=== PATIENT | female | born 1975 | race Caucasian/White ===

== ENCOUNTER → 2017-04-01 | Outpatient (CLI) | payer OTHER ==
--- NOTE | 2017-04-06 11:15 | MM ---
Reason for exam: screening (asymptomatic). Last mammogram was performed 1 year and 1 month ago. History: Family history of breast cancer in 2 maternal aunts. Physical Findings: A clinical breast exam by your physician is recommended on an annual basis and results should be correlated with mammographic findings. MG Screening Mammo w CAD Bilateral CC and MLO view(s) were taken. Prior study comparison: February 19, 2016, bilateral MG screening mammo w CAD. February 15, 2015, bilateral MG screening mammo w CAD. There are scattered fibroglandular densities. There is no discrete abnormality. ASSESSMENT: Negative, BI-RAD 1 RECOMMENDATION: Routine screening mammogram of both breasts in 1 year.
== END | disposition home or self-care (01) ==
LOC: RADMAMWWP 14:01
PROVIDERS: ATTEND Internal Medicine
DX: Z12.31 Encounter for screening mammogram for malignant neoplasm of breast (principal)

== ENCOUNTER → 2018-07-05 | Outpatient (CLI) | payer OTHER ==
--- NOTE | 2018-07-07 10:47 | MM ---
Reason for exam: screening (asymptomatic). Last mammogram was performed 1 year and 3 months ago. History: Family history of breast cancer in 2 maternal aunts. Physical Findings: A clinical breast exam by your physician is recommended on an annual basis and results should be correlated with mammographic findings. MG Screening Mammo w CAD Bilateral CC and MLO view(s) were taken. Prior study comparison: April 01, 2017, bilateral MG screening mammo w CAD. February 19, 2016, bilateral MG screening mammo w CAD. There are scattered fibroglandular densities. There is chronic nodularity bilaterally. No significant changes when compared with prior studies. ASSESSMENT: Benign, BI-RAD 2 RECOMMENDATION: Routine screening mammogram of both breasts in 1 year.
== END ==
LOC: RADMAMWWP 12:43
PROVIDERS: ATTEND Internal Medicine
DX: Z12.31 Encounter for screening mammogram for malignant neoplasm of breast (principal)
CPT/HCPCS: 77067

== ENCOUNTER → 2019-10-03 | Outpatient (CLI) | payer OTHER ==
--- NOTE | 2019-10-05 10:49 | MM ---
Reason for exam: screening (asymptomatic). Last mammogram was performed 1 year and 3 months ago. History: Family history of breast cancer in 2 maternal aunts. Physical Findings: A clinical breast exam by your physician is recommended on an annual basis and results should be correlated with mammographic findings. MG Screening Mammo w CAD Bilateral CC and MLO view(s) were taken. Prior study comparison: July 05, 2018, bilateral MG screening mammo w CAD. April 01, 2017, bilateral MG screening mammo w CAD. There are scattered fibroglandular densities. No significant changes when compared with prior studies. ASSESSMENT: Negative, BI-RAD 1 RECOMMENDATION: Routine screening mammogram of both breasts in 1 year.
== END | disposition home or self-care (01) ==
LOC: RADMAMWWP 15:18
PROVIDERS: ATTEND Internal Medicine
DX: Z12.31 Encounter for screening mammogram for malignant neoplasm of breast (principal)
CPT/HCPCS: 77067

== ENCOUNTER → 2020-11-02 | Outpatient (CLI) | payer OTHER ==
--- NOTE | 2020-11-05 12:04 | MM ---
Reason for exam: screening (asymptomatic). Last mammogram was performed 1 year and 1 month ago. History: Family history of breast cancer in 2 maternal aunts. Physical Findings: A clinical breast exam by your physician is recommended on an annual basis and results should be correlated with mammographic findings. MG Screening Mammo w CAD Bilateral CC and MLO view(s) were taken. Prior study comparison: October 03, 2019, bilateral MG screening mammo w CAD. July 05, 2018, bilateral MG screening mammo w CAD. There are scattered fibroglandular densities. There are benign appearing round, linear calcifications bilaterally. There is chronic nodularity in the left breast. There is no discrete abnormality. ASSESSMENT: Benign, BI-RAD 2 RECOMMENDATION: Routine screening mammogram of both breasts in 1 year.
== END ==
LOC: RADMAMWWP 10:00
PROVIDERS: ATTEND Internal Medicine
DX: Z12.31 Encounter for screening mammogram for malignant neoplasm of breast (principal); Z80.3 Family history of malignant neoplasm of breast
CPT/HCPCS: 77067

== ENCOUNTER → 2022-05-26 | Outpatient (CLI) | payer OTHER ==
[2022-05-26 19:10] LABS: Basophils # (A) 0.09 X 10*3/uL (0.00-0.10); Basophils % (A) 0.7 %; Eosinophils # (A) 0.56 X 10*3/uL (0.04-0.35); Eosinophils % (A) 4.5 %; HCT 37.2 % (37.2-46.3); HGB 12.1 g/dL (12.0-15.0); Immature Grans, Automated 0.5 %; Lymphocytes # (A) 3.21 X 10*3/uL (0.90-5.00); MCH 28.9 pg (27.0-32.0); MCHC 32.5 g/dL (32.0-37.0); Mean Platelet Volume 9.4 fL (9.5-12.2); Monocytes # (A) 0.67 X 10*3/uL (0.20-1.00); Monocytes % (A) 5.4 %; NRBC Per 100 WBC 0 /100 WBCS (0.0-0.0); Neutrophils # (A) 7.75 X 10*3/uL (1.80-7.70); Neutrophils % (A) 62.9 %; Platelet Count 395 X 10*3/uL (140-440); RBC 4.18 X 10*6/uL (4.10-5.20); RDW 13.7 % (11.5-14.5); WBC 12.34 X 10*3/uL (4.50-10.00)
[2022-05-26 21:40] LABS: African American GFR (CKD) 103.2 (60.0-200.0); Albumin/Globulin Ratio 1.49 (1.60-3.17); BUN/Creat Ratio 13.49 Ratio (12.00-20.00); Blood Urea Nitrogen 10.6 mg/dL (9.0-27.0); Calcium 9.5 mg/dL (8.7-10.3); Carbon Dioxide 24.6 mmol/L (20.0-27.5); Globulin 2.7 g/dL (1.6-3.3); Non-African American GFR(CKD) 89.1 (60.0-200.0); Potassium 4.5 mmol/L (3.5-5.5); T4, Free (Free Thyroxine) 1.06 ng/dL (0.800-1.800); Total Bilirubin 0.2 mg/dL (0.30-1.20); Total Protein 6.6 g/dL (6.2-8.2)
== END | disposition home or self-care (01) ==
LOC: LABWHC1 13:48
PROVIDERS: ATTEND Family Medicine
DX: E03.9 Hypothyroidism, unspecified (principal)
CPT/HCPCS: 36415; 80053; 84439; 84443; 84481; 85025

== ENCOUNTER → 2022-06-06 | Outpatient (CLI) | payer OTHER ==
--- NOTE | 2022-06-06 12:43 | XR ---
EXAMINATION TYPE: XR lumbar spine 2 or 3V DATE OF EXAM: 06/06/2022 COMPARISON: None HISTORY: Low back pain down left TECHNIQUE: 3 view lumbar spine FINDINGS: There are 5 lumbar-type vertebral bodies. Pedicles are intact. Disc heights are preserved. Vertebral body heights are preserved. Alignment is normal IMPRESSION: 1. Unremarkable 3 view lumbar spine
== END | disposition home or self-care (01) ==
LOC: RADXRMAIN 11:50
PROVIDERS: ATTEND Family Medicine
DX: M54.32 Sciatica, left side (principal)
CPT/HCPCS: 72100

== ENCOUNTER 2022-12-05 01:39 | Emergency (ER) | payer OTHER ==
[2022-12-05 01:54] VITALS: BP 124/85; PULSE 94; RESP 18; TEMP 98
[2022-12-05] MEDS ORDERED: ALPRAZolam 0.5 MG TAB PO STA (02:08)
--- NOTE | 2022-12-05 02:11 | ED ---
General Adult HPI - General Chief complaint: Recheck/Abnormal Lab/Rx Stated complaint: tremors Time Seen by Provider: 12/05/22 01:51 Source: patient Mode of arrival: ambulatory Limitations: no limitations - History of Present Illness Initial comments: Dictation was produced using [employer] dictation software. please excuse any grammatical, word or spelling errors. Chief Complaint: 47-year-old female presents emergency department for tremors during sleeping History of Present Illness: 47-year-old female states that for the last 5 nights she's been suffering from bilateral tremors only while sleeping. She states if she had not had a good night's rest over the last 4-5 nights. She did see her primary care doctor prescribed her 5 pills of Ambien. She tried to sleep tonight however she had these symptoms that woke her up out of her sleep she tried to go back to bed but was not successful. History of detached spine. States that her symptoms feel like they originate in her upper abdominal area and pretty down her legs last for several seconds. Patient has no complaints at bedside. The ROS documented in this emergency department record has been reviewed and confirmed by me. Those systems with pertinent positive or negative responses have been documented in the HPI. All other systems are other negative and/or noncontributory. PHYSICAL EXAM: General Impression: Alert and oriented x3, not in acute distress HEENT: Normocephalic atraumatic, extra-ocular movements intact, pupils equal and reactive to light bilaterally, mucous membranes moist. Cardiovascular: Heart regular rate and rhythm Chest: Able to complete full sentences, no retractions, no tachypnea Musculoskeletal: Pulses present and equal in all extremities, no peripheral edema Motor: no focal deficits noted Neurological: CN II-XII grossly intact, no focal motor or sensory deficits noted Skin: Intact with no visualized rashes Psych: Normal affect and mood ED course: 47-year-old female presents to the emergency department for other some musculoskeletal movements during sleep that prevent her from having good night's rest. Vital signs are stable. Physical examination is benign. Patient given a dose of Xanax. will drive her home told to see how she rest and then follow up with her primary care doctor. Nursing notes and chart review was performed Was pt. sent in by a medical professional or institution (, PA, JAVA ARCHITECT, urgent care, hospital, or assisted...) When possible be specific @ -No Did you speak to anyone other than the patient for history (EMS, parent, family, police, friend...)? What history was obtained from this source @ -No Did you review nursing and triage notes (agree or disagree)? Why? @ -I reviewed and agree with nursing and triage notes Were old charts reviewed (outside hosp., previous admission, EMS record, old EKG, old radiological studies, urgent care reports/EKG's, assisted records)? Report findings @ -No old charts were reviewed Differential Diagnosis (chest pain, altered mental status, abdominal pain women, abdominal pain men, vaginal bleeding, musculoskeletal, weakness, fever, dyspnea, syncope, headache, dizziness, GI bleed, back pain, seizure, CVA, palpatations, mental health)? @ -not applicable EKG interpreted by me (3pts min.). @ -None done X-rays interpreted by me (1pt min.). @ -None done CT interpreted by me (1pt min.). @ -None done U/S interpreted by me (1pt. min.). @ -None done What testing was considered but not performed or refused? (CT, X-rays, U/S, labs)? Why? @ -None What meds were considered but not given or refused? Why? @ -None Did you discuss the management of the patient with other professionals (professionals i.e. , PA, JAVA ARCHITECT, lab, RT, psych nurse, social media community manager, nephrologist, teacher, juvenile detention officer, pillowcase sewer)? Give summary @ -No Was smoking cessation discussed for >3mins.? @ -No Was critical care preformed (if so, how long)? @ -No Were there social determinants of health that impacted care today? How? (Homelessness, low income, unemployed, alcoholism, drug addiction, transportation, low edu. Level, literacy, decrease access to med. care, fdc, rehab)? @ -No Was there de-escalation of care discussed even if they declined (Discuss DNR or withdrawal of care, Hospice)? DNR status @ -No What co-morbidities impacted this encounter? (DM, HTN, Smoking, COPD, CAD, Cancer, CVA, ARF, Chemo, Hep., AIDS, mental health diagnosis, sleep apnea, morbid obesity)? @ -None Was patient admitted / discharged? Hospital course, mention meds given and route, prescriptions, significant lab abnormalities, going to OR and other pertinent info. @ -See above Undiagnosed new problem with uncertain prognosis? @ -No Drug Therapy requiring intensive monitoring for toxicity (Heparin, Nitro, Insulin, Cardizem)? @ -No Were any procedures done? @ -No Diagnosis/symptom? Acute, or Chronic, or Acute on Chronic? Uncomplicated (without systemic symptoms) or Complicated (systemic symptoms)? @ -1. Acute uncomplicated movement disorder during sleep Side effects of treatment? @ -No Exacerbation, Progression, or Severe Exacerbation? @ -No Poses a threat to life or bodily function? How? (Chest pain, [place], [place], pneumonia, PE, COPD, DKA, ARF, appy, cholecystitis, CVA, Diverticulitis, Homicidal, Suicidal, threat to staff... and all critical care pts) @ -No - Related Data Allergies Allergy/AdvReac Type Severity Reaction Status Date / Time No Known Allergies Allergy Verified 12/05/22 01:49 Review of Systems ROS Statement: Those systems with pertinent positive or pertinent negative responses have been documented in the HPI. ROS Other: All systems not noted in ROS Statement are negative. Past Medical History Additional Past Medical History / Comment(s): back pain History of Any Multi-Drug Resistant Organisms: None Reported Past Surgical History: Orthopedic Surgery Past Psychological History: No Psychological Hx Reported Smoking Status: Current every day smoker Past Alcohol Use History: None Reported Past Drug Use History: None Reported General Exam Limitations: no limitations Course Vital Signs 12/05/22 01:49 Temperature 98.0 F Pulse Rate 94 Respiratory 18 Rate Blood Pressure 124/85 O2 Sat by Pulse 98 Oximetry Disposition Clinical Impression: Sleep disturbance Disposition: HOME SELF-CARE Condition: Good Instructions (If sedation given, give patient instructions): Alprazolam (By mouth) Is patient prescribed a controlled substance at d/c from ED?: No Referrals: Felipe Lindo MD [Primary Care Provider] - 1-2 days Time of Disposition: 02:11
== END 2022-12-05 02:21 | disposition home or self-care (01) ==
LOC: EC 01:39
DX: G47.9 Sleep disorder, unspecified (principal); F17.200 Nicotine dependence, unspecified, uncomplicated
CPT/HCPCS: 99283

== ENCOUNTER 2022-12-08 06:56 | Emergency (ER) | payer OTHER ==
[2022-12-08 07:01] VITALS: RESP 18; TEMP 97.8
[2022-12-08] MEDS ORDERED: SODIUM CHLORIDE 0.9% 1,000 ML IV STA (07:28)
--- NOTE | 2022-12-08 07:32 | ED ---
General Adult HPI - General Chief complaint: Recheck/Abnormal Lab/Rx Stated complaint: Trouble sleeping, Possible Medication Reaction Time Seen by Provider: 12/08/22 07:20 Source: patient, RN notes reviewed, old records reviewed Mode of arrival: ambulatory Limitations: no limitations - History of Present Illness Initial comments: Patient is a 47-year-old female with past medical history remarkable for depression, hypertension, who presents to the emergency Department for reevaluation. She has been seen over the last week multiple times for vague sy mptoms of "leg shaking when I lay down to go to sleep." When I ask her, it seems that she is more having a spasming sensation and not an actual shaking. She states her legs are physically moving back and forth on visual inspection but rather she feels like she is having movement of her muscles in her legs. States it goes away when she takes her leg out. States it is in bilateral legs. Goes away but then she cannot go back to sleep. Has been having a difficult time sleeping over the last 7 days. States this is not occurred previously. It is not present while she is awake. Denies any chest pain or shortness of breath. Denies any abdominal pain, nausea, vomiting. Denies any saddle an esthesias. Denies any urinary or bowel incontinence or retention. Does have chronic sciatica left lower extremity pain/numbness but this is well controlled. Has no other acute complaints at this time. Currently denies any of her chief complaint symptoms at this time, as the spasming only occurs when she lays down to go to sleep. Presents for further evaluation at this time. He was seen once here and twice at [facility] over the last 7-8 days. States that the medication she is given did not seem to improve. She does have a follow-up appointment with her primary care physician this afternoon at 1:30 PM, however patient states she presents this morning because "I want to sleep." Denies any history of panic attacks. Denies feeling anxious. - Related Data Allergies Allergy/AdvReac Type Severity Reaction Status Date / Time No Known Allergies Allergy Verified 12/08/22 06:57 Review of Systems ROS Statement: Those systems with pertinent positive or pertinent negative responses have been documented in the HPI. Review of Systems: CONST: Denies fever EYES: Denies blurry vision ENT: Denies nasal congestion C/V: Denies Chest pain RESP: Denies shortness of breath GI: Denies abdominal pain : Denies dysuria SKIN: Denies rash. MSK: Denies joint pain. NEURO: Denies headache ROS Other: All systems not noted in ROS Statement are negative. Past Medical History Additional Past Medical History / Comment(s): back pain History of Any Multi-Drug Resistant Organisms: None Reported Past Surgical History: Orthopedic Surgery Past Psychological History: No Psychological Hx Reported Smoking Status: Current every day smoker Past Alcohol Use History: None Reported Past Drug Use History: None Reported General Exam - General Exam Comments Initial Comments: General: Appears in no acute distress. HEAD: Normal with no signs of head trauma. EYES: PERRLA, EOMI, conjunctiva normal, no discharge. Pupils are 3 mm and equal bilaterally. ENT: Hearing grossly intact, normal oropharynx. RESPIRATORY: Clear breath sounds bilaterally. No wheezes, rales, or rhonchi. C/V: Regular rate and rhythm. S1 and S2 auscultated, peripheral pulses 2+ and intact throughout ABD: Abd is soft, nontender, nondistended EXT: Normal range of motion, no obvious deformity SKIN: No rashes or lesions observed on exposed skin. NEURO: Alert and oriented x 4. Cranial nerves II-XII intact. No focal sensory or strength deficits. NIH of 0. GCS of 15. Limitations: no limitations Course Vital Signs 12/08/22 12/08/22 06:58 08:53 Temperature 97.8 F Pulse Rate 102 H 98 Respiratory 18 18 Rate Blood Pressure 133/88 128/78 O2 Sat by Pulse 96 100 Oximetry Medical Decision Making - Medical Decision Making Was pt. sent in by a medical professional or institution (, PA, APPLIANCES SAMPLE MAKER, urgent care, hospital, or [facility]...) When possible be specific @ -No Did you speak to anyone other than the patient for history (EMS, parent, family, police, friend...)? What history was obtained from this source @ -No Did you review nursing and triage notes (agree or disagree)? Why? @ -I reviewed and agree with nursing and triage notes Were old charts reviewed (outside hosp., previous admission, EMS record, old EKG, old radiological studies, urgent care reports/EKG's, mcc records)? Report findings @ -Old charts reviewed from 12/05/2022. Differential Diagnosis (chest pain, altered mental status, abdominal pain women, abdominal pain men, vaginal bleeding, weakness, fever, dyspnea, syncope, headache, dizziness, GI bleed, back pain, seizure, CVA, palpatations, mental health, musculoskeletal)? @ -Anxiety, depression, muscle spasms, panic disorders, insomnia. Electrolyte abnormalities. This list is not all inclusive. EKG interpreted by me (3pts min.). @ -None done X-rays interpreted by me (1pt min.). @ -None done CT interpreted by me (1pt min.). @ -None done U/S interpreted by me (1pt. min.). @ -None done What testing was considered but not performed or refused? (CT, X-rays, U/S, labs)? Why? @ -None What meds were considered but not given or refused? Why? @ -I did offer the patient a small dose of oral Ativan which she declines at this time. Did you discuss the management of the patient with other professionals (professionals i.e. , PA, APPLIANCES SAMPLE MAKER, lab, RT, psych nurse, social science research assistant, wood technologist, teacher, aoc director combat operations officer, pillowcase folder)? Give summary @ -No Was smoking cessation discussed for >3mins.? @ -No Was critical care preformed (if so, how long)? @ -No Were there social determinants of health that impacted care today? How? (Homelessness, low income, unemployed, alcoholism, drug addiction, transportation, low edu. Level, literacy, decrease access to med. care, residential, rehab)? @ -No Was there de-escalation of care discussed even if they declined (Discuss DNR or withdrawal of care, Hospice)? DNR status @ -No What co-morbidities impacted this encounter? (DM, HTN, Smoking, COPD, CAD, Cancer, CVA, ARF, Chemo, Hep., AIDS, mental health diagnosis, sleep apnea, morbid obesity)? @ -None Was patient admitted / discharged? Hospital course, mention meds given and route, prescriptions, significant lab abnormalities, going to OR and other pertinent info. @ -Based on the patient's presentation and physical exam, I do suspect possible psychiatric component to her current complaints. Patient currently has no complaints at this time but states she gets the leg shaking when she lays down to go to bed only. Is not present at any other time. Symptoms currently is not present. Exam is within acceptable limits. We did discuss it sounds that she is having muscle spasms. She was in agreement with that assessment is uncertain why. She denies any anxiety or history of panic attacks. States they have not obtain blood work for her visits and she is just received anti-anxiety medications. Therefore we will obtain basic labs will she is here to evaluate for any electrolyte abnormalities as a possible source of her complaints, however I did discuss with her that I have low suspicion is the complaints occurred at a specific time of day when she is going to bed. She was in agreement with this plan. She'll be given IV fluid bolus. I did offer her Ativan which she declines at this time. Vital signs are within acceptable limits. Labs including creatinine kinase are within acceptable limits. On reevaluation, patient's continued coffee and I discussed her workup with her. I believe it is safer to be discharged home with follow-up with her PCP this afternoon. She was in agreement with this plan. I will provide her with a single dose of oral Ativan and she wants attempt to sleep. We did discuss stopping drinking coffee as well as as well as proper sleep hygiene that she can sleep. She was in agreement this plan. We discussed she is likely experiencing insomnia as well as muscle spasms, with no appearance of the muscle spasms while she was in the emergency department today. She was discharged home. . I instructed the patient to follow up with their PCP in the next 1-3 days. I explained that the patient should return to the emergency department if they experience any worsening symptoms. Strict return precautions were discussed with the patient. The patient expressed understanding of these instructions. I answered all questions that the patient had. The patient was discharged home in good condition with their prescriptions and follow up information. Undiagnosed new problem with uncertain prognosis? @ -No Drug Therapy requiring intensive monitoring for toxicity (Heparin, Nitro, Insulin, Cardizem)? @ -No Were any procedures done? @ -No Diagnosis/symptom? @ -Muscle spasms, insomnia Acute, or Chronic, or Acute on Chronic? @ -Acute Uncomplicated (without systemic symptoms) or Complicated (systemic symptoms)? @ -Uncomplicated Side effects of treatment? @ -No Exacerbation, Progression, or Severe Exacerbation? @ -No Poses a threat to life or bodily function? How? (Chest pain, [place], [place], pneumonia, PE, COPD, DKA, ARF, appy, cholecystitis, CVA, Diverticulitis, Homicidal, Suicidal, threat to staff... and all critical care pts) @ -No - Lab Data Result diagrams: 12/08/22 07:33 12/08/22 07:33 Lab Results 12/08/22 12/08/22 Range/Units 07:33 07:33 WBC 10.3 (3.8-10.6) k/uL RBC 4.71 (3.80-5.40) m/uL Hgb 13.3 (11.4-16.0) gm/dL Hct 40.6 (34.0-46.0) % MCV 86.2 (80.0-100.0) fL MCH 28.2 (25.0-35.0) pg MCHC 32.7 (31.0-37.0) g/dL RDW 13.7 (11.5-15.5) % Plt Count 358 (150-450) k/uL MPV 6.5 Neutrophils % 60 % Lymphocytes % 26 % Monocytes % 5 % Eosinophils % 6 % Basophils % 1 % Neutrophils # 6.2 (1.3-7.7) k/uL Lymphocytes # 2.7 (1.0-4.8) k/uL Monocytes # 0.5 (0-1.0) k/uL Eosinophils # 0.7 (0-0.7) k/uL Basophils # 0.1 (0-0.2) k/uL Sodium 140 (137-145) mmol/L Potassium 4.7 (3.5-5.1) mmol/L Chloride 107 (98-107) mmol/L Carbon Dioxide 24 (22-30) mmol/L Anion Gap 9 mmol/L BUN 14 (7-17) mg/dL Creatinine 0.66 (0.52-1.04) mg/dL Est GFR (CKD-EPI)AfAm >90 (>60 ml/min/1.73 sqM) Est GFR (CKD-EPI)NonAf >90 (>60 ml/min/1.73 sqM) Glucose 102 H (74-99) mg/dL Calcium 9.4 (8.4-10.2) mg/dL Magnesium 2.1 (1.6-2.3) mg/dL Creatine Kinase 56 (30-135) U/L Disposition Clinical Impression: Insomnia, Muscle spasm, Sleep disturbance Disposition: HOME SELF-CARE Condition: Good Is patient prescribed a controlled substance at d/c from ED?: No Referrals: Felipe Lindo MD [Primary Care Provider] - 1-2 days Time of Disposition: 08:38
[2022-12-08 07:46] LABS: Basophils # (A) 0.1 k/uL (0-0.2); Basophils % (A) 1 %; Eosinophils # (A) 0.7 k/uL (0-0.7); Eosinophils % (A) 6 %; HCT 40.6 % (34.0-46.0); HGB 13.3 gm/dL (11.4-16.0); Lymphocytes # (A) 2.7 k/uL (1.0-4.8); Lymphocytes % (A) 26 %; MCH 28.2 pg (25.0-35.0); MCHC 32.7 g/dL (31.0-37.0); MCV 86.2 fL (80.0-100.0); Mean Platelet Volume 6.5; Monocytes # (A) 0.5 k/uL (0-1.0); Monocytes % (A) 5 %; Neutrophils # (A) 6.2 k/uL (1.3-7.7); Neutrophils % (A) 60 %; Platelet Count 358 k/uL (150-450); RBC 4.71 m/uL (3.80-5.40); RDW 13.7 % (11.5-15.5); WBC 10.3 k/uL (3.8-10.6)
[2022-12-08 07:58] LABS: African American GFR (CKD) >90 (>60 ml/min/1.73 sqM); Anion Gap 9 mmol/L; Blood Urea Nitrogen 14 mg/dL (7-17); Calcium 9.4 mg/dL (8.4-10.2); Carbon Dioxide 24 mmol/L (22-30); Chloride 107 mmol/L (98-107); Creatine Kinase 56 U/L (30-135); Glucose 102 mg/dL (74-99); Magnesium 2.1 mg/dL (1.6-2.3); Non-African American GFR(CKD) >90 (>60 ml/min/1.73 sqM); Potassium 4.7 mmol/L (3.5-5.1); Sodium 140 mmol/L (137-145)
[2022-12-08] MEDS ORDERED: LORazepam 1 MG TAB PO STA (08:44)
[2022-12-08 08:54] VITALS: BP 128/78; PULSE 98
== END 2022-12-08 08:53 | disposition home or self-care (01) ==
LOC: EC 06:56
DX: G47.00 Insomnia, unspecified (principal); M62.838 Other muscle spasm; G47.9 Sleep disorder, unspecified; F17.200 Nicotine dependence, unspecified, uncomplicated
CPT/HCPCS: 36415; 80048; 82550; 83735; 85025; 96360; 99284

== ENCOUNTER → 2023-03-30 | Outpatient (CLI) | payer OTHER ==
[2023-03-30 14:41] LABS: % Iron Saturation 16.16 (12.00-45.00); ALT 48 U/L (8-44); AST 42 U/L (13-35); Albumin 4.2 d/dL (3.8-4.9); Alkaline Phosphatase 88 U/L (41-126); Calcium 9.7 mg/dL (8.7-10.3); Carbon Dioxide 23.6 mmol/L (21.6-31.8); Chloride 105 mmol/L (96-109); Chol/HDL Ratio 4.59 Ratio; Ferritin 98.9 ng/mL (10.0-291.0); Globulin 2.8 d/dL (1.6-3.3); Glucose 100 mg/dL (70-110); Iron 53 UG/DL (50-170); LDL Cholesterol,Calculated 112.4 mg/dL (0.0-131.0); Potassium 4.5 mmol/L (3.5-5.5); Sodium 141 mmol/L (135-145); T4, Free (Free Thyroxine) 1.09 ng/dL (0.80-1.80); Total Bilirubin 0.3 mg/dL (0.3-1.2); Total Iron Binding Capacity 328 UG/DL (228-460)
[2023-03-30 17:03] LABS: Basophils # (A) 0.12 X 10*3/uL (0.00-0.10); Basophils % (A) 1.1 %; Eosinophils # (A) 0.58 X 10*3/uL (0.04-0.35); Eosinophils % (A) 5.1 %; HCT 40.6 % (37.2-46.3); HGB 12.5 d/dL (12.0-15.0); Lymphocytes # (A) 3.26 X 10*3/uL (0.90-5.00); Lymphocytes % (A) 28.6 %; MCH 28.4 pg (27.0-32.0); MCHC 30.8 d/dL (32.0-37.0); MCV 92.3 FL (80.0-97.0); Mean Platelet Volume 9.7 FL (9.5-12.2); Monocytes % (A) 5.3 %; NRBC Per 100 WBC 0 X 10*3/uL (0.00-0.01); Neutrophils # (A) 6.79 X 10*3/uL (1.80-7.70); Neutrophils % (A) 59.5 %; Platelet Count 356 X 10*3/uL (140-440); RDW 13.7 % (11.5-14.5); WBC 11.39 X 10*3/uL (4.50-10.00)
[2023-03-31 10:41] LABS: Reticulocyte % 1.92
== END | disposition home or self-care (01) ==
LOC: LABWHC1 08:52
PROVIDERS: ATTEND Family Medicine
DX: I10 Essential (primary) hypertension (principal); E03.9 Hypothyroidism, unspecified; E78.5 Hyperlipidemia, unspecified
CPT/HCPCS: 36415; 80053; 80061; 82306; 82728; 82746; 83540; 83550; 84439; 84443; 84481; 85025; 85045

== ENCOUNTER → 2023-04-27 | Outpatient (CLI) | payer OTHER ==
--- NOTE | 2023-04-29 15:02 | MM ---
Reason for Exam: Screening (asymptomatic). Last mammogram was performed 1 year(s) and 3 month(s) ago. Patient History: Menarche at age 13. First Full-Term at age 25. Maternal aunt had breast cancer. Maternal aunt had breast cancer. Risk Values: Claudia 5 year model risk: 0.9%. NCI Lifetime model risk: 9.2%. Prior Study Comparison: 10/03/2019 Bilateral Screening Mammogram, [facility]. 11/02/2020 Bilateral Screening Mammogram, [facility]. 01/07/2022 Bilateral Screening Mammogram, [facility]. Tissue Density: There are scattered fibroglandular densities. Findings: Analyzed By CAD. Nodular density lower inner left breast, 7.8cm from the nipple. New finding. Overall Assessment: Incomplete: need additional imaging evaluation, BI-RAD 0 Management: Special View Mammogram of the left breast. Diagnostic Breast Ultrasound of the left breast. [facility] will attempt to contact patient to return for supplemental views and ultrasound. Electronically signed and approved by: Jeffrey Malik M.D. Radiologis
== END | disposition home or self-care (01) ==
LOC: RADMAMWWP 16:22
PROVIDERS: ATTEND Family Medicine
DX: Z12.31 Encounter for screening mammogram for malignant neoplasm of breast (principal); Z80.3 Family history of malignant neoplasm of breast
CPT/HCPCS: 77063; 77067

== ENCOUNTER → 2023-07-06 | Outpatient (CLI) | payer OTHER ==
--- NOTE | 2023-07-06 15:54 | USB ---
Reason for Exam: Additional evaluation requested from abnormal screening. Patient History: Menarche at age 13. First Full-Term at age 25. Maternal aunt had breast cancer. Maternal aunt had breast cancer. Risk Values: Claudia 5 year model risk: 0.9%. NCI Lifetime model risk: 9.2%. Technique: Method: Targeted. Prior Study Comparison: 11/02/2020 Bilateral Screening Mammogram, [facility]. 01/07/2022 Bilateral Screening Mammogram, [facility]. 04/27/2023 Bilateral MG 3D screening mammo w/cad, [facility]. Findings: The lower inner quadrant of the left breast, the axilla of the left breast and the retroareolar of the left breast were scanned. At the 7:00 position 8 cm from the nipple there is a 0.5 x 0.3 x 0.4 cm simple cyst. This correlate with mammogram.. Overall Assessment: Benign, BI-RAD 2 Management: Screening Mammogram of both breasts in 7 months. A clinical breast exam by your physician is recommended on an annual basis and results should be correlated with mammographic findings. This exam should not preclude additional follow-up of suspicious palpable abnormalities. Results were given to the patient verbally at the time of exam. Electronically signed and approved by: Herman Ocampo D.O. Radiologis
== END | disposition home or self-care (01) ==
LOC: RADMAMWWP 13:37
PROVIDERS: ATTEND Family Medicine
DX: R92.8 Other abnormal and inconclusive findings on diagnostic imaging of breast (principal); N60.02 Solitary cyst of left breast; Z80.3 Family history of malignant neoplasm of breast
CPT/HCPCS: 77061; 77065

== ENCOUNTER → 2024-01-08 | Outpatient (CLI) | payer OTHER | END | disposition home or self-care (01) | LOC: LABPAT 11:13 | PROVIDERS: ATTEND Orthopaedic Surgery | DX: Z01.812 Encounter for preprocedural laboratory examination (principal); M51.26 Other intervertebral disc displacement, lumbar region; M48.02 Spinal stenosis, cervical region; Z22.322 Carrier or suspected carrier of Methicillin resistant Staphylococcus aureus | CPT/HCPCS: 86850; 86900; 86901; 87070 ==

== ENCOUNTER 2024-01-14 08:18 | Day surgery (SDC) | payer OTHER ==
[2024-01-08 14:24] VITALS: BMI 42.7
--- NOTE | 2024-01-13 20:37 | P.HPOR ---
History of Present Illness H&P Date: 01/08/24 .D:Date: 01/08/24 : 10:38am .T:Title: *[facility] HISTORY AND PHYSICAL Age: 48 year Height: 5'3" Weight: 230 lbs BP:125/80 BMI: 40.74 kg/m2 Occupation: n/a VAS: 3 IMPRESSION: It was my pleasure to have seen and examined Ingrid. I reviewed the patient's clinical syndrome, physical findings, and imaging studies during the appointment today. It is my impression that the patient has a diagnosis of. 1. Lumbar spondylosis 2. L3-S1 Left paracentral HNP 3. Left lower extremity radiculopathy Spine Surgery Risk Review Ms. Hale is presenting for evaluation of low back and left lower extremity pain , left lower extremity numbness and tingling. It was my pleasure to have seen and examined Ms. Hale. In our visit today we have had a chance to go over subjective complaints, physical examination findings and treatments including the natural course history without intervention and various interventional options. The patients imaging demonstrates: XRay Lumbar spine AP/LAT/FLEX/EXT/OB and [facility] Images reviewed with the patient demonstrates somewhat advanced spondylosis changes of the L4-S1 region with disc height loss, facet arthrosis and foraminal stenosis related that is moderate and more advanced thatn would e expected for age. Alignment is otherwise well maintained. No fracures noted. AP pelvis shows congurnet level pevis no fractures MRI of Lumbar Spine completed at Outside Facility in May 2023: Images reviewed with the patient and demonstrate L4-5 and L5-S1 HNP with moderate to sevre central stenosis with severe foraminal stenosis on the left due to paracentral left side herniations. There is disc dessication at these levels as well with facet arthropathy and some ligamental thickening. No fractures or lesions noted at this time. On physical exam, Ms. Hale demonstrates: An aching, burning, and pressure - like pain in the left lateral lumbar spine that has been progressing over the past two weeks. In addition to her lumbar pain, pateint states that it radiates into her left lower extremity associated with numbness and tingling. She states her symptoms worsen with all activity. She reports experiencing severe sleep disturbances related to her ongoing pain and associated symptoms. I have explained to the patient that as their condition progresses it will cause further neurological deficits and eventual paralysis. Based on the patients imaging, physical exam, and the rapid progression and disabling nature of their symptoms, at this time I recommend surgery in the form of a: L4-5, L5-S1 left- sided microdiscectomy . I discussed the risk and benefits of this procedure at length with Ms. Hale. The patient agreed to considered pursuing the procedure abovementioned. Prior to surgery, she should follow up with her PCP (Cardio, ID, IM etc) for clearance. Questions were invited and answered, and the patient wishes to proceed as outlined below. Currently, I am recommendin.L4-5, L5-S1 left-sided microdiscectomy 2.Review of surgical risks and benefits as well as an educational packet on the proposed surgical procedure. Risks: All surgical procedures come with inherent risks, including those related to positioning, anesthesia, intraoperative findings, and postoperative complications. It is important to understand that surgery does not come with any guarantee of a successful outcome as complications and adverse events are always possible. The patient was given a handout in office today discussing the surgical procedure and risks associated with the intervention, both of which were discussed with the patient. These risks include but are not limited to the following: * Experiencing same, different or even worse symptoms in back, neck, arms, or legs compared to before surgery. Requiring further surgery or other forms of treatment presently or at some time in the future at same or other levels of the intended spine surgery. On an extreme but fortunately relatively rare basis severe complication such as blindness, stroke, heart attack, temporary and/or permanent nerve injury, paralysis, coma, or may occur, sometimes without known explanation. Surgical complications may include but are not limited to risk of infection, fluid accumulation in the surgical dissection site, including a seroma or hematoma, that requires additional surgery, wound drainage, bleeding, new numbness or weakness, vision changes/loss, spinal fluid leakage, non-healing and/or infected incision, headaches, difficulty or inability to swallow, hoarseness, hemopneumothorax, pneumothorax, impotence, retrograde ejaculation, vaginal dryness; injury to nerves, spinal cord, blood vessels, lymphatics or other vital organs (i.e., bowel injury, injury to the great vessels); heterotopic bone formation; complications related to the hardware such as screws, rods, cages including misplaced hardware, device failure, instrumentation at the wrong spine level, hardware fracture/breakage, or lemus rdware loosening; vertebral failure of the spinal column above or below the newly placed hardware; retained surgical instrumentations or devices and the need for further surgery. * Medical risks of the planned spine surgery include but are not limited to generalized Infections to the whole body or local areas outside of the surgical site (sepsis), heart attack, bleeding, anaphylaxis, meningitis, seizure, epilepsy, hearing loss, burn verma, laceration of the head or other areas of the body, bruising, hypersensitivity of the skin, bladder over distension; allergic reaction; shoulder injury related to positioning; fat, blood and air clots to other areas of the body like heart, lungs, brain; failure of internal organs such as lungs, kidneys, liver and excessive bleeding. If blood transfusions are necessary, note that transfusions may cause intolerance reactions such as anaphylaxis or other complex reactions. Despite best efforts, the results of spine surgery might not heal in terms of bone, soft tissues such as skin, fascia, ligaments, and joints. Additionally, in order to achieve best possible results, spine surgery may be carried out beyond the initially planned levels and involve decompression, fusion including insertion of hardware at levels other than the original intended area of surgical interest change some portions of the procedure in order to ensure the best possible outcomes. With spine surgery and spinal fusion, there are different off label uses of instrumentation (devices, implants and hardware) as well as biological substances (bone morphogenic proteins, demineralized bone matrix) as well as using extra bone from allograft sources (i.e. cadaver bone) or autograft (iliac crest bone, ribs, or the spine itself). The patient has been given information about these practices and their inherent risks and benefits. [facility] is an educational center that serves as a training facility for neurosurgical and orthopedic MANAGER THERAPY and Nursing students. Physician assistants are medically trained surgical providers who function in the outpatient, inpatient, and operating room setting under the direct supervision of the attending surgeon. [facility] has multiple operating rooms with single and overlapping rooms running daily. They currently function under the required guidelines as produced by the [facility] Finance Committee with regards to the overlapping rooms and will continue to comply with changes to this policy as they occur. The requirements include and are complied with as follows: (1) the critical portions of the overlapping rooms will not occur at the same time, (2) the attending physician will be physically present during the critical portions of the procedure and immediately available during the entire case, and (3) a back-up attending is designated should the primary attending not be immediately available. The patient has had a chance to review all the listed information, has been given print outs detailing this information, and has had all his/her questions answered to their satisfaction. It was my pleasure to have seen and examined Ms. Hale. In our visit today we have had a chance to go over my understanding of our patient's current condition, the natural course history without intervention and various interventional options. Questions were invited and answered, and the patient wishes to proceed as outlined above. I have seen and examined the patient for 25 minutes and we have spent more than 50% of the time in repeat and detailed counseling about the patient's condition, its natural course history with out and as much as can be predicted with surgery and re-review of various surgical treatment options. In conclusion, Ms. Hale requested we proceed with the above suggested surgery and are willing to accept risks and limitations of the suggested surgery as nature of the disease process and our best attempts at treatment for the condition. Thank you again for allowing us to be part of your patient's care. Please don't hesitate to contact me if you have any further questions. FOLLOW UP: Post Procedure PATIENT EDUCATION: Medications Reviewed: YES In our visit today Ms. Hale and I have had a chance to go over my understanding of the patient's current condition, the natural course history without intervention and various interventional options. Questions were invited and answered, and the patient wishes to proceed as outlined above. I will be sure to keep you updated after Ms. Hale returns here for further follow-up. Thank you again for your referral. Please do not hesitate to contact me if you have any further questions. Signed and authenticated by: Noel Razo [facility] [address], [place] [address] This message is confidential, intended only for the named recipient(s) and may c ontain information that is privileged or exempt from disclosure under applicable law. If you are not the intended recipient(s), you are notified that the dissemination, distribution or copying of this information is strictly prohibited. If you received this message in error, please notify the sender then delete this message. Past Medical History Past Medical History: GERD/Reflux, Hypertension, Osteoarthritis (OA), Pneumonia, Thyroid Disorder Additional Past Medical History / Comment(s): back pain, occasional acid reflux, doesn't take medication for it. Tinnitis. History of Any Multi-Drug Resistant Organisms: None Reported Past Surgical History: Orthopedic Surgery Additional Past Surgical History / Comment(s): Rt hip replacement. "Had surgery on lt foot when I was little." Past Anesthesia/Blood Transfusion Reactions: No Reported Reaction Additional Past Anesthesia/Blood Transfusion Reaction / Comment(s): No hx of blood transfusion. Smoking Status: Current every day smoker - Past Family History Mother Family Medical History: Cancer Additional Family Medical History / Comment(s): Aunt had breast cancer. Medications and Allergies Home Medications Medication Instructions Recorded Confirmed Type Biotin(Unknown Dose) 1 dose PO QAM 01/08/24 01/08/24 History FLUoxetine HCL 1 tab PO QAM 01/08/24 01/08/24 History Gabapentin [Neurontin] 300 mg PO TID 01/08/24 01/08/24 History HYDROcodone/APAP 10-325MG [[place] 1 tab PO Q6HR PRN 01/08/24 01/08/24 History 10-325] Levothyroxine Sodium [Synthroid] 25 mcg PO DAILY 01/08/24 01/08/24 History Meloxicam [Mobic] 15 mg PO QAM 01/08/24 01/08/24 History Multi Vit(Unknown Dose) 1 dose PO QAM 01/08/24 01/08/24 History Muscle Relaxant(Unknown Dose) 1 dose PO QAM 01/08/24 01/08/24 History atenoloL 25 mg PO QAM 01/08/24 01/08/24 History hydrOXYzine HCL [Atarax] 50 mg PO HS 01/08/24 01/08/24 History rOPINIRole HCL 2 tab PO HS 01/08/24 01/08/24 History Allergies Allergy/AdvReac Type Severity Reaction Status Date / Time No Known Allergies Allergy Verified 01/08/24 13:38 Physical Examination Osteopathic Statement: *. No significant issues noted on an osteopathic structural exam other than those noted in the History and Physical/Consult.
[~2024-01-14 08:18] MED LIST: GABAPENTIN 300 MG CAP PO PRN; HYDROmorphone 0.5 MG/0.5 ML SYRINGE IVP PRN; LIDOCAINE 1% (10MG/ML) FOR IV START INTRADERMA PRN; MIDAZOLAM 2 MG/2 ML VIAL IV PRN; ONDANSETRON 4 MG/2 ML VIAL IVP PRN; TRANEXAMIC 1,000 MG/100ML-NACL 1,000 MG in SALINE 1 100ML.BAG IVPB PRN
[2024-01-14] MEDS: LACTATED RINGERS 1,000 ML IV SCH (08:31)
[2024-01-14] MEDS: ACETAMINOPHEN TAB 500 MG TAB PO PRN (08:45)
[2024-01-14] MEDS: ONDANSETRON 4 MG/2 ML VIAL IVP ONE (08:45)
[2024-01-14] MEDS: DEXAMETHASONE SOD PHOSPHATE 4 MG/ML 1 ML VIAL IV ONE (08:45)
[2024-01-14] MEDS ORDERED: PHENYLEPHRINE 10 MG/ML VIAL ONE (09:13)
[2024-01-14] MEDS ORDERED: TRANEXAMIC 1,000 MG/100ML-NACL PREMIX BAG ONE (09:13)
[2024-01-14] MEDS ORDERED: fentaNYL (PF) 50 MCG/ML 2 ML AMP ONE (09:13)
[2024-01-14] MEDS ORDERED: ROCURONIUM 10 MG/ML (5 ML VIAL) IV ONE (09:13)
[2024-01-14] MEDS ORDERED: MIDAZOLAM 2 MG/2 ML VIAL ONE (09:13)
[2024-01-14] MEDS ORDERED: ePHEDrine 50 MG/ML 1 ML VIAL ONE (09:13)
[2024-01-14] MEDS ORDERED: NEOSTIGMINE 1 MG/ML 10 ML VIAL ONE (09:13)
[2024-01-14] MEDS ORDERED: LIDOCAINE 1% INJ 10MG/ML (20 ML MDV) ONE (09:13)
[2024-01-14] MEDS ORDERED: PROPOFOL 10 MG/ML 20 ML VIAL IV ONE (09:13)
[2024-01-14] MEDS ORDERED: SUCCINYLCHOLINE CHLORIDE 200 MG/10 ML VIAL IV ONE (09:13)
[2024-01-14] MEDS ORDERED: HYDROmorphone (PF) 1 MG/ML ONE (09:13)
[2024-01-14] MEDS ORDERED: GLYCOPYRROLATE 0.2 MG/ML 2 ML VIAL ONE (09:13)
[2024-01-14] MEDS: BUPIVACAINE (PF) 0.5% 30 ML VIAL SQ ONE ×2 (09:48→10:37)
[2024-01-14] MEDS: LIDOCAINE 2%-EPI 1:100,000 20 ML VIAL SQ ONE ×2 (09:48→10:37)
[2024-01-14] MEDS: VANCOMYCIN 1,000 MG VIAL MISCELLANE ONE (10:32)
--- NOTE | 2024-01-14 10:49 | P.OP ---
Date of Procedure: 01/14/24 Preoperative Diagnosis: 1. L5-S1 HNP WITH STENOSIS 2. L4-5 HNP WITH STENOSIS 3. L4-S1 SPONDYLOSIS WITH RADICULOPATHY 4. LE WEAKNESS 5. LOW BACK PAIN Postoperative Diagnosis: 1. L5-S1 HNP WITH STENOSIS 2. L4-5 HNP WITH STENOSIS 3. L4-S1 SPONDYLOSIS WITH RADICULOPATHY 4. LE WEAKNESS 5. LOW BACK PAIN Procedure(s) Performed: 1. L5-S1 LAMINOFORAMINOTOMY WITH MICRODISCECOMTY 2. L4-5 LAMINOFORAMINOTOMY WITH MICRODISCECTOMY LEFT CPTMOD 22 THIS CASE TOOK 75% LONGER THAN EXPECTED DUE TO CORMORBID CONDITIONS, HIGH BMI >40, EXTENT OF LUMBAR DISEASE AND HIGH TECHNICALITY OF THE CASE. Implants: NONE Anesthesia: GETA Surgeon: Noel Amaral [employer] Beverage Operations Manager #1: Anthony Templeton (WAS PRESENT AND ASSISTED WITH ALL ASPECTS OF THE CASE FROM POSITION TO CLOSURE) Estimated Blood Loss (ml): 75 IV fluids (ml): 1,200 Urine output (ml): 0 Pathology: none sent Condition: stable Disposition: PACU Indications for Procedure: Ms. Hale is presenting for evaluation of low back and left lower extremity pain , left lower extremity numbness and tingling. It was my pleasure to have seen and examined Ms. Hale. In our visit today we have had a chance to go over subjective complaints, physical examination findings and treatments including the natural course history without intervention and various interventional options. The patients imaging demonstrates: XRay Lumbar spine AP/LAT/FLEX/EXT/OB and [facility]aken at [facility]: Images reviewed with the patient demonstrates somewhat advanced spondylosis changes of the L4-S1 region with disc height loss, facet arthrosis and foraminal stenosis related that is moderate and more advanced thatn would e expected for age. Alignment is otherwise well maintained. No fracures noted. AP pelvis shows congurnet level pevis no fractures MRI of Lumbar Spine completed at Outside Facility in May 2023: Images reviewed with the patient and demonstrate L4-5 and L5-S1 HNP with moderate to sevre central stenosis with severe foraminal stenosis on the left due to paracentral left side herniations. There is disc dessication at these levels as well with facet arthropathy and some ligamental thickening. No fractures or lesions noted at this time. On physical exam, Ms. Hale demonstrates: An aching, burning, and pressure - like pain in the left lateral lumbar spine that has been progressing over the past two weeks. In addition to her lumbar pain, pateint states that it radiates into her left lower extremity associated with numbness and tingling. She states her symptoms worsen with all activity. She reports experiencing severe sleep disturbances related to her ongoing pain and associated symptoms. I have explained to the patient that as their condition progresses it will cause further neurological deficits and eventual paralysis. Based on the patients imaging, physical exam, and the rapid progression and disabling nature of their symptoms, at this time I recommend surgery in the form of a: L4-5, L5-S1 left- sided microdiscectomy . I discussed the risk and benefits of this procedure at length with Ms. Hale. The patient agreed to considered pursuing the procedure abovementioned. Prior to surgery, she should follow up with her PCP (Cardio, ID, IM etc) for clearance. Questions were invited and answered, and the patient wishes to proceed as outlined below. Currently, I am recommendin.L4-5, L5-S1 left-sided microdiscectomy Description of Procedure: L4-S1 LAMINOFORAMINOTOMY WITH MICRODISCECOMTY (LEFT) The patient was seen and examined in the preoperative area. All preoperative protocols were followed. Informed consent was obtained, risks and benefits of the procedure were discussed at length. Risks including bleeding infection damage to the surrounding tissue and risk of reoperation were discussed with the patient. Risk of anesthesia up to and including was discussed with the patient. These are outlined in the risk review. They were willing to accept these risks and all the risks of surgery. The patient was given a weight-based dose of antibiotics in the form of 2 g Ancef. The patient was seen and evaluated by the anesthesia team who deemed them fit for surgery. The site was marked, the patient was willing to proceed with the procedure. The patient was transferred to the operative suite by the Department of anesthesia. They were then drifted off to sleep by the department anesthesia and GETA was performed. The patient tolerated this well. Once confirmation of lines and ventilation the patient was transferred to a prone Raheem table very carefully. All bony prominences including wrists, elbows, axilla, chest, hips, and thighs, and feet were padded very well. Special attention was paid to the genitalia, and these were padded accordingly. SCDs were placed on bilateral lower extremities and were connected. Arms were well padded and placed on arm boards up and out in the 90/90 position. Once in position, again we confirmed good ventilation capabilities and that lines were running appropriately. The patients Lumbar spine was then exposed. 1010s were placed outlining the incision site. Standard alcohol was used to clean the incision site and allowed to dry. C-arm was used to needle localize the pedicles at L4-5 and bio-davi the patient and confirm level for incision which was marked with a skin marker. Operative briefing was performed with all teams and everyone in agreement to proceed. The patient was then prepped and draped in a normal sterile fashion. Timeout was then performed, and all parties agreed with the procedure to be performed. Skin incision was made over the previously marked area and dissection taken down to the deep facia which was split just off midline for a midline sparing approach. Subperiosteal dissection was then taken down the lamina over the facet joints and identifying the pars at L4. Stites 4 was placed at the level of the pars of L4 and a lateral image taken to confirm operative level. Retractors were then placed. Microscope was then brought in for visualization. Edmundo-laminotomy, partial medial facetectomy and foraminotomy were performed at L4-5 using high speed satya and Kerrison rongure. The ligamentum flavum was removed with Kerrison and curette. Dura and roots protected. The disc space was identified along with the herniation. 11 blade was used to make small annulotomy and micro-pituitary used to remove loose disc fragments. Once fragments were removed, down biting curette was used to push any medial fragments down and towards the annulotomy and decompress centrally. The disc space was irrigated, and any loose fragments removed again. Bipolar was used for hemostasis and scarring of the annulotomy. The area was irrigated, and meticulous hemostasis performed. The bed was inspected, and all roots have ample room and are decompressed along with the dura. There were no injuries. We then proceeded to L5-S1. Edmundo-laminotomy, partial medial facetectomy and foraminotomy were performed at L5-S1 using high speed satya and Kerrison rongure. The ligamentum flavum was removed with Kerrison and curette. Dura and roots protected. The disc space was identified along with the herniation. 11 blade was used to make small annulotomy and micro-pituitary used to remove loose disc fragments. Once fragments were removed, down biting curette was used to push any medial fragments down and towards the annulotomy and decompress centrally. The disc space was irrigated, and any loose fragments removed again. Bipolar was used for hemostasis and scarring of the annulotomy. The area was irrigated, and meticulous hemostasis performed. The bed was inspected, and all roots have ample room and are decompressed along with the dura. There were no injuries. Retractors were then removed. The wound was copiously irrigated with NSS. The deep fascia was closed with #1 PDS. Deep sub-q with 0 Vicryl and superficial with 2-0 Vicryl. Subcuticular was closed with [place]. The wound edges approximated well. The wound was then cleaned, adn dressed sterilly. It was then Covered with an Opifoam dressing. The patient was then transferred off the table back to their hospital bed a- traumatically. They were extubated by the department of anesthesia. They were then transferred to PACU in stable condition having tolerated the procedure with no complications.
--- NOTE | 2024-01-14 11:42 | XR ---
EXAMINATION TYPE: XR lumbar spine 1V, FL guidance operating room DATE OF EXAM: 01/14/2024 COMPARISON: NONE HISTORY: 48-year-old female lumbar laminectomy with decompression TECHNIQUE: Intraoperative fluoroscopy FINDINGS: lumbar lami with decomp DAP: 5.3207 Gycm2 16 sec 4 images are provided. IMPRESSION: Intraoperative fluoroscopy as above.
[2024-01-14 12:09] VITALS: RESP 18; TEMP 97.1
[2024-01-14 13:08] VITALS: BP 134/79; PULSE 83
== END 2024-01-14 13:13 | disposition home or self-care (01) ==
LOC: OR 08:18
PROVIDERS: ATTEND Orthopaedic Surgery
DX: M48.07 Spinal stenosis, lumbosacral region (principal); M51.17 Intervertebral disc disorders with radiculopathy, lumbosacral region; M47.27 Other spondylosis with radiculopathy, lumbosacral region; K21.9 Gastro-esophageal reflux disease without esophagitis; I10 Essential (primary) hypertension; E07.9 Disorder of thyroid, unspecified; M19.90 Unspecified osteoarthritis, unspecified site; F17.210 Nicotine dependence, cigarettes, uncomplicated; Z79.890 Hormone replacement therapy; Z79.899 Other long term (current) drug therapy
CPT/HCPCS: 81025; 72020; 63030; 63035; J2250; J3370; J0330; J1100; J2710; J0690; J2405; J2001; J3010; J1170; J2704; J2371; J0665

== ENCOUNTER → 2024-05-31 | Outpatient (CLI) | payer OTHER ==
--- NOTE | 2024-05-31 09:14 | XR ---
EXAMINATION TYPE: XR cervical spine limited DATE OF EXAM: 05/31/2024 CLINICAL HISTORY: pain TECHNIQUE: 3 views of the cervical spine are submitted. COMPARISON: None. FINDINGS: There is satisfactory in alignment without evidence of acute fracture or dislocation. The pre-vertebral soft tissue appears within normal limits. Mild degenerative narrowing C5-C6 with ventr al spondylosis. The C1-C2 articulation is unremarkable on the open mouth view. IMPRESSION: No acute fracture or dislocation is seen in the cervical spine. [facility], , 05/31/2024 9:12 AM
== END | disposition home or self-care (01) ==
LOC: RADXRMAIN 08:36
PROVIDERS: ATTEND Family Medicine
DX: M54.2 Cervicalgia (principal)
CPT/HCPCS: 72040

== ENCOUNTER → 2024-06-22 | Outpatient (CLI) | payer OTHER ==
--- NOTE | 2024-06-22 11:29 | XR ---
EXAMINATION TYPE: XR chest 2V DATE OF EXAM: 06/22/2024 COMPARISON: NONE HISTORY: Chest pain TECHNIQUE: Frontal and lateral views of the chest are obtained. FINDINGS: There is no focal air space opacity. No evidence for pneumothorax. No pleural effusion. The cardiac silhouette size is within normal limits. The osseous structures are grossly intact. IMPRESSION: 1. No acute cardiopulmonary process. [facility], , 06/22/2024 11:27 AM
== END | disposition home or self-care (01) ==
LOC: RADXRMAIN 10:57
PROVIDERS: ATTEND Internal Medicine
DX: R05.3 Chronic cough (principal)
CPT/HCPCS: 71046

== ENCOUNTER → 2024-07-30 | Outpatient (CLI) | payer OTHER ==
--- NOTE | 2024-07-30 15:43 | XR ---
EXAMINATION TYPE: XR shoulder complete 3 views each side BILAT DATE OF EXAM: 07/30/2024 COMPARISON: NONE CLINICAL INDICATION: Female, 49 years old with history of M25.512 PAIN IN LEFT SHOULDER M25.511 PAIN IN RIGH; FINDINGS: There is mild marginal spurring at both shoulders. Some subtle subchondral cystic change right AC vasile nt. Subacromial space preserved on both sides. No tendinous or bursal calcifications. No acute fractu re, pleural effusion or dislocation seen. There appeared be old healed right lateral rib fracture def ormities. IMPRESSION: Mild degenerative change at both AC joints. Old healed right lateral rib fracture deformities. No acu te osseous abnormality seen. [facility], , 07/30/2024 3:41 PM
== END | disposition home or self-care (01) ==
LOC: RADXRMAIN 15:01
PROVIDERS: ATTEND Family Medicine
DX: M19.011 Primary osteoarthritis, right shoulder (principal); M19.012 Primary osteoarthritis, left shoulder

== ENCOUNTER → 2024-08-02 | Outpatient (CLI) | payer OTHER ==
--- NOTE | 2024-08-02 13:15 | CT ---
EXAMINATION TYPE: CT brain wo con CT DLP: 1047.1 mGycm, Automated exposure control for dose reduction was used. DATE OF EXAM: 08/02/2024 1:04 PM COMPARISON: None. CLINICAL INDICATION:Female, 49 years old with history of R42 dizziness, headaches TECHNIQUE: Brain: Multiple axial CT images of the brain were obtained without IV contrast. . Coronal and sagitta l reformats reviewed. FINDINGS: Brain: Extra-axial spaces: No abnormal extra-axial fluid collections. Ventricular system: Within normal limits Cerebral parenchyma: No acute intraparenchymal hemorrhage or mass effect. The hernandez-white junction is well differentiated. Cerebellum: Unremarkable. Mass effect: No evidence of midline shift. Intracranial vasculature: unremarkable Soft tissues: Normal. Calvarium/osseous structures: No depressed skull fracture. Paranasal sinuses and mastoid air cells: The mastoid air cells are clear. Minimal mucosal thickening with hypertrophic olsen of the right maxillary sinus likely related to chronic sinusitis. The remaini ng paranasal sinuses are clear. Visualized orbits: Orbital contents are intact. IMPRESSION: No acute intracranial process. [facility], , 08/02/2024 1:12 PM
--- NOTE | 2024-08-02 14:55 | MR ---
EXAMINATION TYPE: MR cervical spine wo con DATE OF EXAM: 08/02/2024 2:21 PM COMPARISON: None. CLINICAL INDICATION: Female, 49 years old with history of M47.812 spondylosis, headaches TECHNIQUE: Multiplanar, multisequence images of the cervical spine were acquired without contrast. FINDINGS: No craniocervical junction abnormality, predental space widening, or prevertebral soft tissue swellin g. Reversal of the normal cervical lordosis. Preserved alignment. Mild multilevel degenerative disc disease with disc desiccation and mild disc bulging, greatest at C5 -C6. Disc bulge here impresses on the ventral thecal sac abutting the ventral cord and minimally narr owing the AP canal dimension down to 10 mm. No large focal disc herniation or significant spinal canal stenosis. Normal course and signal intensity of the cervical spinal cord. Scattered mild to moderate facet joint arthropathy. Changes result in mild left neuroforaminal stenosis at C3-C4. Numerous scattered nonenlarged and borderline size lymph nodes in both sides of the neck. Probably re active/post inflammatory. IMPRESSION: 1. Mild degenerative disc disease with desiccated and mild bulging discs particularly at C5-C6 where the disc bulge impresses on to the ventral thecal sac. No large focal disc herniation or significant spinal canal stenosis. 2. Mild to moderate facet arthropathy. Changes result in a mild left neuroforaminal stenosis at C3-C4 . 3. Reversal of the normal cervical lordosis but with preserved alignment. 4. Numerous scattered nonenlarged and borderline sized lymph nodes along both sides of the neck, prob ably reactive/post inflammatory. This can be followed clinically. [facility], , 08/02/2024 2:53 PM
== END | disposition home or self-care (01) ==
LOC: RADCTMAIN 12:32
PROVIDERS: ATTEND Family Medicine
DX: M50.322 Other cervical disc degeneration at C5-C6 level (principal); M47.812 Spondylosis without myelopathy or radiculopathy, cervical region; M99.71 Connective tissue and disc stenosis of intervertebral foramina of cervical region; R42 Dizziness and giddiness
CPT/HCPCS: 70450; 72141

== ENCOUNTER → 2024-08-16 | Outpatient (CLI) | payer OTHER ==
--- NOTE | 2024-08-17 08:53 | CT ---
EXAMINATION TYPE: CT soft tissue neck w con DATE OF EXAM: 08/16/2024 4:32 PM COMPARISON: None. CLINICAL INDICATION: Female, 49 years old with history of R09.89 SIGNS INVOLVING THE CIRC AND RESP SY STEMS, Constant coughing and gagging x 4 months TECHNIQUE: Standard enhanced CT of the neck. Axial sections with coronal and sagittal reformats were obtained. Contrast used:100 mL of Isovue 300 with IV Contrast, (None if empty) Oral contrast used: (None if empty) CT DLP: 644.9 mGycm, Automated exposure control for dose reduction was used. FINDINGS: Brain: Visualized portions are grossly unremarkable. Orbits: Unremarkable Sinuses: Grossly unremarkable. Spaces of the neck: Clear and symmetric. No lymphadenopathy or submucosal asymmetry to suggest mass. Musculoskeletal: No acute osseous pathology. Lymph nodes: Multiple nonenlarged lymph nodes are seen along both anterior chains of the neck. Vascular structures: Visualized major arteries are patent without evidence of aneurysm. Thoracic Inlet/airway: Airway is patent. The lung apices are clear. Soft tissues/Thyroid: Thyroid and remainder of the soft tissues are unremarkable. Other: none. IMPRESSION: No evidence for mass, lymphadenopathy or acute process. [facility], , 08/17/2024 8:51 AM
== END | disposition home or self-care (01) ==
LOC: RADCTMAIN 16:08
PROVIDERS: ATTEND Otolaryngology
DX: R09.89 Other specified symptoms and signs involving the circulatory and respiratory systems (principal)
CPT/HCPCS: 70491; Q9967

== ENCOUNTER → 2024-09-07 | Outpatient (CLI) | payer BC, OTHER ==
[2024-09-07 10:04] VITALS: BP 118/80; PULSE 91; RESP 16; TEMP 96.9
--- NOTE | 2024-09-07 15:15 | P.PAINPG ---
PQRS Measure Charge Sheet Comment: HISTORY OF PRESENT ILLNESS: A 49 yr old female as a referral from Dr Archuleta presents today w severe and chronic head and neck pain secondary to occipital neuralgia, cervicogenic YU, L4-S1 Laminoforatomy w Microdisection for evaluation. Pt states pain level is provoked at 6 /10 in intensity, constant, localized in the upper neck, predominantly axial, sharp in character w occasional shooting pain towards the L side of head. Pain is provoked by rotation. Pain is alleviated by medications (Flexeril), manual massage, repositioning and rest . PMH: OA, GERD, HTN, Hypothyroidism, Tinnitis PSH: R Hip Replacement SH: Daily tobacco use, Occ ETOH use, No illicit drug use FH: MO- CA, Aunt- Breast CA All: See list Meds: See list REVIEW OF ORGAN SYSTEMS: CONSTITUTIONAL: No fevers or chills. No recent weight loss. NEUROLOGICAL: + numbness and tingling along the distal extremities. No seizure disorders or headaches. MUSCULOSKELETAL: + pain PSYCHIATRIC: Denies current depression or suicidal thoughts. Physical Examinations : Constitutional : Cooperative , not in acute distress . Neurologic : Cranial nerve II to XII intact. No focal neurological deficits. Psychiatric : alert & oriented x 3. Matching mood & appropriate affect. Judgment & insight intact. Musculoskeletal : Cervical Spine +L FARA TTP Motor strength in the deltoid and biceps: Normal right side. Normal Left side Motor strength biceps and the wrist extensors: Normal right side . Normal left side Motor strength in the triceps muscle: Normal right side. Normal left side Deep tendon reflexes: Normal at the biceps. Normal at Brachioradialis. Normal at triceps Vertebral body tenderness to deep palpation over Cervical facet loading test: positive bilaterally Spurling test: positive bilaterally Neck distraction test: positive bilaterally Lionel sign: positive bilaterally Lumbar spine Motor strength lower extremities ,thigh and legs 5/5 Right side , 5/5 Left side Deep tendon reflexes : Normal Knee Jerk. Normal Ankle Jerk Vertebral body tenderness over Thurman Test positive Lumbar facet Loading Test: positive Right / positive Left Range of motion of the lumbar spine Flexion 30 degrees, extension 10 degrees Straight Leg Raise test: Left/ Right positive at degrees Randy test: positive right / positive left. Severe tenderness over the Sacroiliac joint on the Right / Left sides Gaenslen test: positive bilaterally Seated flexion test: positive bilaterally. Sacral spine : Severe tenderness over the Sacroiliac joint: right side / left side Range of motion: Flexion of the lumbar spine <60 degrees Range of motion: Extension of the lumbar spine <20 degrees Gaenslen's Test positive Randy test: positive right side / left side Thigh Thrust Test Sacral Thrust Test Imaging: CT Brain without contrast from 08/02/24 reviewed Assessment/ Plan : Occipital Neuralgia, Cervicogenic YU, L4-S1 Laminoforatomy w Microdisection Recommendation of Nigel CHAUDHARI #1. Risks, benefits of procedure discussed and patient verbalized understanding. Admits to anti- coagulant use or medical history of diabetes. Protocol for discontinuation/ continuation of medications teresa procedure discussed. All questions answered. I have spent greater than 30 minutes on patient care today. Dr Byrnes was available by phone for the evaluation of this patient. The time was used to rev iew the medical records including relevant urine studies and Prescription history (MAPs), review of the available imaging, evaluation and examination of the patient, coordination of care with the medical staff and if applicable referring physicians, as well as creation of the medical record - Pain Location Left Upper Neck Non-Pharmacological Interventions: Position/Reposition, Relaxation Technique Pharmacological Interventions: PRN Medication, Scheduled Medication Home Medications: Ambulatory Orders Biotin(Unknown Dose) 1 dose PO QAM 01/08/24 FLUoxetine HCL 1 tab PO QAM 01/08/24 Gabapentin [Neurontin] 300 mg PO TID 01/08/24 HYDROcodone/APAP 10-325MG [[place] 10-325] 1 tab PO Q6HR PRN 01/08/24 Levothyroxine Sodium [Synthroid] 25 mcg PO DAILY 01/08/24 Meloxicam [Mobic] 15 mg PO QAM 01/08/24 Multi Vit(Unknown Dose) 1 dose PO QAM 01/08/24 Muscle Relaxant(Unknown Dose) 1 dose PO QAM 01/08/24 atenoloL 25 mg PO QAM 01/08/24 hydrOXYzine HCL [Atarax] 50 mg PO HS 01/08/24 rOPINIRole HCL 2 tab PO HS 01/08/24 Cyclobenzaprine [Flexeril] 5 mg PO TID #21 tablet 01/14/24 Gabapentin 300 mg PO TID #30 cap 01/14/24 HYDROcodone/APAP 10-325MG [[place] 10-325] 1 tab PO Q6HR PRN #28 tab 01/14/24 Sennosides/Docusate Sodium [Senna Plus 8.6-50 mg Softgel] 1 each PO DAILY #20 capsule 01/14/24 cefaDROXiL [Duricef] 500 mg PO Q12HR 5 Days #10 cap 01/14/24 diazePAM [Valium] 5 mg PO DAILY PRN 1 Days #2 tab 09/07/24 Controlled Substance Measures - Controlled Substance Measures Is patient prescribed a controlled substance at discharge?: Yes When asked, does pt state using other controlled substances?: No If prescribed controlled substance>3 days was MAPS reviewed?: Prescribed <3 Days
== END ==
LOC: PNWHC3 09:37
PROVIDERS: ATTEND Specialist
DX: M54.81 Occipital neuralgia (principal); M43.26 Fusion of spine, lumbar region; G62.9 Polyneuropathy, unspecified; G44.86 Cervicogenic headache; G89.29 Other chronic pain
CPT/HCPCS: 99211

== ENCOUNTER → 2024-09-08 | Outpatient (CLI) | payer BC, OTHER ==
--- NOTE | 2024-09-08 11:11 | MM ---
Reason for Exam: Screening (asymptomatic). Last mammogram was performed 1 year(s) and 5 month(s) ago. Patient History: Menarche at age 13. First Full-Term at age 25. Premenopausal. Maternal aunt had breast cancer. Maternal aunt had breast cancer. Risk Values: Claudia 5 year model risk: 1.0%. NCI Lifetime model risk: 9.1%. Prior Study Comparison: 01/07/2022 Bilateral Screening Mammogram, [facility]. 04/27/2023 Bilateral MG 3D screening mammo w/cad, [facility]. 07/06/2023 Left MG 3D work up w/cad , [facility]. Tissue Density: The breasts are almost entirely fatty. Findings: Analyzed By CAD. Right breast: There is no suspicious group of microcalcifications or new suspicious mass. Left breast: There is no suspicious group of microcalcifications or new suspicious mass. Overall Assessment: Negative, BI-RAD 1 Management: Screening Mammogram of both breasts in [address] [facility] will attempt to contact patient to return for supplemental views and ultrasound if indicated. Patient should continue monthly self-breast exams. A clinical breast exam by your physician is recommended on an annual basis. This exam should not preclude additional follow-up of suspicious palpable abnormalities. Note on Claudia scores and lifetime risk: 1. A Claudia score greater than 3% is considered moderate risk. If this is the case, consider specialist referral to assess eligibility for a risk reducing agent. 2. If overall lifetime risk for the development of breast cancer is 20% or higher, the patient may qualify for future screening with alternating mammogram and breast MRI. [facility], , 09/08/2024 11:08 AM. Electronically signed and approved by: Octavio Hyde DO
== END | disposition home or self-care (01) ==
LOC: RADMAMWWP 10:29
PROVIDERS: ATTEND Family Medicine
DX: Z12.31 Encounter for screening mammogram for malignant neoplasm of breast (principal); Z80.3 Family history of malignant neoplasm of breast; R92.313 Mammographic fatty tissue density, bilateral breasts
CPT/HCPCS: 77063; 77067

== ENCOUNTER → 2024-09-08 | Outpatient (CLI) | payer BC ==
--- NOTE | 2024-09-08 13:19 | FL ---
EXAMINATION TYPE: FL barium swallow DATE OF EXAM: 09/08/2024 12:15 PM COMPARISON: . Chest radiograph from same day. CLINICAL INDICATION:Female, 49 years old with history of R09.89 signs and symptoms of rep system; PH , TECHNIQUE: The procedure was explained and patient history elicited. All patient questions were ans wered prior to start of procedure. Multiple spot fluoroscopic images of the esophagus were obtained a fter the oral ingestion of effervescent crystals and liquid barium as the contrast agent. Fluoroscopic time:37 sec Fluoroscopic images:0 Radiographs taken: 111 DAP: NOT REPORTED [id number] FINDINGS: The esophagus demonstrates normal primary and secondary peristalsis. Tertiary contractions are seen w ith delayed emptying of the esophageal contents. The esophageal mucosa is smooth without evidence of focal stricture, ulceration, or abnormal outpouching. No gastroesophageal reflux disease was identif ied No finding to correlate with patient's globus sensation. IMPRESSION: 1. Esophageal dysmotility. 2. No finding to correlate with patient's globus sensation. Consider direct visualization. [facility], , 09/08/2024 1:16 PM
== END | disposition home or self-care (01) ==
LOC: RADFLMAIN 10:27
PROVIDERS: ATTEND Otolaryngology
DX: K22.4 Dyskinesia of esophagus (principal); R09.89 Other specified symptoms and signs involving the circulatory and respiratory systems
CPT/HCPCS: 74220

== ENCOUNTER 2024-11-03 17:01 | Emergency (ER) | payer BC ==
[2024-11-03 17:20] VITALS: RESP 16
[2024-11-03 18:04] LABS: Appearance,Urine Cloudy (Clear); Bilirubin,Urine Negative (Negative); Blood,Urine Negative (Negative); Color,Urine Colorless; Glucose,Urine (UA) Negative (Negative); Ketones,Urine Negative (Negative); Leukocyte Esterase,Urine Negative (Negative); Mucus,Urine Rare /hpf; Nitrite,Urine Negative (Negative); PH, Urine 6.5 (5.0-8.0); Protein,Urine Negative (Negative); RBC,Urine 1 /hpf (0-5); Specific Gravity,Urine 1.011 (1.001-1.035); Squamous Epithelial Cell,Urine 4 /hpf (0-4); Urobilinogen,Urine <2.0 mg/dL (<2.0); WBC,Urine 2 /hpf (0-5)
[2024-11-03 18:17] LABS: Amphetamine Screen,Urine Not Detected (NotDetected); Barbiturate Screen,Urine Not Detected (NotDetected); Benzodiazepines Screen,Urine Not Detected (NotDetected); Cocaine Screen,Urine Not Detected (NotDetected); Methadone Screen, Urine Not Detected (NotDetected); Opiate Screen,Urine Not Detected (NotDetected); Oxycodone Screen, Urine Not Detected (NotDetected); Phencyclidine Screen,Urine Not Detected (NotDetected); Tricyclic Antidepressant,Urine Not Detected (NotDetected); Urn Cannabinoid Scrn Not Detected (NotDetected)
[2024-11-03 18:31] LABS: Basophils # (A) 0.1 k/uL (0-0.2); Basophils % (A) 1 %; Eosinophils # (A) 0.4 k/uL (0-0.7); Eosinophils % (A) 2 %; HCT 45.3 % (34.0-46.0); HGB 14.3 gm/dL (11.4-16.0); Lymphocytes # (A) 4.6 k/uL (1.0-4.8); Lymphocytes % (A) 26 %; MCH 27.4 pg (25.0-35.0); MCHC 31.6 g/dL (31.0-37.0); MCV 86.6 fL (80.0-100.0); Mean Platelet Volume 6.4; Monocytes # (A) 0.6 k/uL (0-1.0); Monocytes % (A) 4 %; Neutrophils # (A) 12.2 k/uL (1.3-7.7); Neutrophils % (A) 67 %; Platelet Count 489 k/uL (150-450); RBC 5.23 m/uL (3.80-5.40); RDW 14.6 % (11.5-15.5); WBC 18.2 k/uL (3.8-10.6)
--- NOTE | 2024-11-03 18:42 | XR ---
EXAMINATION TYPE: XR chest 2V DATE OF EXAM: 11/03/2024 6:38 PM COMPARISON: 06/22/2024 CLINICAL INDICATION: Female, 49 years old with history of dizziness, TECHNIQUE: Frontal and lateral views of the chest are obtained. FINDINGS: There is no focal air space opacity, pleural effusion, or pneumothorax seen. The cardiac silhouette size is within normal limits. The osseous structures are intact. IMPRESSION: No acute cardiopulmonary process. [facility], , 11/03/2024 6:40 PM
--- NOTE | 2024-11-03 18:44 | XR ---
EXAMINATION TYPE: XR soft tissue neck DATE OF EXAM: 11/03/2024 6:38 PM COMPARISON: None. CLINICAL INDICATION: Female, 49 years old with history of foreign body sensation TECHNIQUE: XR soft tissue neck views were obtained FINDINGS: The airway is patent. Normal appearing epiglottis. Retropharyngeal soft tissues are within normal l imits. No evidence for radiopaque foreign body. IMPRESSION: Negative study [facility], , 11/03/2024 6:42 PM
[2024-11-03] MEDS: LIDOCAINE VISCOUS 2% 15 ML CUP PO ONE (18:47)
[2024-11-03] MEDS: MECLIZINE 12.5 MG TAB PO STA (18:48)
[2024-11-03] MEDS: SODIUM CHLORIDE 0.9% 1,000 ML IV STA (18:50)
--- NOTE | 2024-11-03 19:01 | ED ---
Dizziness HPI - General Chief Complaint: Dizziness Stated Complaint: Dizziness,Weakness Time Seen by Provider: 11/03/24 17:28 Source: patient Mode of arrival: ambulatory Limitations: no limitations - History of Present Illness Initial Comments: 49-year-old female presenting with chief complaint of dizziness and the sensation that something is stuck in her throat ongoing for the last 4 to 5 months. Patient denies any throat pain or pain with swallowing, she does states that it is uncomfortable. She is still able to eat and drink without difficulty. She had a negative barium swallow test done back in August. She has an appointment with Dr. Oro on the of this month for an upper GI scope. She reports that the dizziness episodes started around the same time as this sensation. Patient has also been getting headaches, she has an appointment with ophthalmology tomorrow and has been seeing a neurologist for this issue. She is also been following with her PCP regarding these complaints. She came in today "because I cannot take it anymore". The symptoms have not been worsening or changing, she is just frustrated by them. She denies chest pain or difficulty breathing. No voice changes or drooling. No known fever. No cough congestion or sore throat. No nausea or vomiting. - Related Data Home Medications Medication Instructions Recorded Confirmed Biotin(Unknown Dose) 1 dose PO QAM 01/08/24 09/16/24 Levothyroxine Sodium [Synthroid] 25 mcg PO DAILY 01/08/24 09/16/24 Multi Vit(Unknown Dose) 1 dose PO QAM 01/08/24 09/16/24 atenoloL 25 mg PO QAM 01/08/24 09/16/24 rOPINIRole HCL 1 tab PO TID 01/08/24 09/16/24 Cyclobenzaprine [Flexeril] 10 mg PO HS 09/16/24 Omeprazole 20 mg PO DAILY 09/16/24 buPROPion HCL [buPROPion HCL XL] 150 mg PO DAILY 09/16/24 Previous Rx's Medication Instructions Recorded diazePAM [Valium] 5 mg PO DAILY PRN 1 Days #2 tab 09/07/24 Allergies Allergy/AdvReac Type Severity Reaction Status Date / Time No Known Allergies Allergy Verified 09/16/24 10:16 Review of Systems ROS Statement: Those systems with pertinent positive or pertinent negative responses have been documented in the HPI. ROS Other: All systems not noted in ROS Statement are negative. Past Medical History Past Medical History: GERD/Reflux, Hypertension Additional Past Medical History / Comment(s): back pain History of Any Multi-Drug Resistant Organisms: None Reported Past Surgical History: Back Surgery, Joint Replacement, Orthopedic Surgery Additional Past Surgical History / Comment(s): back lumbar in december,total hip right, hip reconstruction Past Anesthesia/Blood Transfusion Reactions: No Reported Reaction Additional Past Anesthesia/Blood Transfusion Reaction / Comment(s): no blood transfusion Past Psychological History: Depression Smoking Status: Former smoker General Exam Limitations: no limitations General appearance: alert, in no apparent distress Head exam: Present: atraumatic, normocephalic, normal inspection Eye exam: Present: normal appearance, EOMI ENT exam: Present: normal oropharynx, mucous membranes moist Neck exam: Present: normal inspection. Absent: meningismus, lymphadenopathy Respiratory exam: Present: normal lung sounds bilaterally. Absent: respiratory distress, wheezes, rales, rhonchi, stridor Cardiovascular Exam: Present: regular rate, normal rhythm, normal heart sounds. Absent: systolic murmur, diastolic murmur, rubs, gallop, clicks Neurological exam: Present: alert, oriented X3 Expanded Eye Response: (4) open spontaneously Motor Response: (6) obeys commands Verbal Response: (5) oriented [place] Total: 15 Psychiatric exam: Present: normal affect, normal mood Skin exam: Present: warm, dry, normal color Course Vital Signs 11/03/24 11/03/24 17:16 20:12 Temperature 98.2 F 98.5 F Pulse Rate 86 80 Respiratory 16 16 Rate Blood Pressure 146/77 126/71 O2 Sat by Pulse 98 98 Oximetry Medical Decision Making - Medical Decision Making Was pt. sent in by a medical professional or institution (, PA, WEIGHT TESTER, urgent care, hospital, or alf...) When possible be specific @ -No Did you speak to anyone other than the patient for history (EMS, parent, family, police, friend...)? What history was obtained from this source @ -No Did you review nursing and triage notes (agree or disagree)? Why? @ -I reviewed and agree with nursing and triage notes Were old charts reviewed (outside hosp., previous admission, EMS record, old E KG, old radiological studies, urgent care reports/EKG's, alf records)? Report findings @ -No old charts were reviewed Differential Diagnosis (chest pain, altered mental status, abdominal pain women, abdominal pain men, vaginal bleeding, weakness, fever, dyspnea, syncope, headache, dizziness, GI bleed, back pain, seizure, CVA, palpatations, mental health, musculoskeletal)? @ -Differential includes foreign body, lymphadenopathy, stricture, mass, not an all-inclusive list EKG interpreted by me (3pts min.). @ -EKG shows sinus rhythm ventricular rate 86. NV interval 145. QRS 95. QT 365. QTc 409. X-rays interpreted by me (1pt min.). @ -Negative soft tissue neck x-ray and chest x-ray CT interpreted by me (1pt min.). @ -None done U/S interpreted by me (1pt. min.). @ -None done What testing was considered but not performed or refused? (CT, X-rays, U/S, labs)? Why? @ -None What meds were considered but not given or refused? Why? @ -None Did you discuss the management of the patient with other professionals (professionals i.e. , PA, WEIGHT TESTER, lab, RT, psych nurse, high school social studies tutor, automatic splicing machine operator, teacher, housing management officer, rn case manager)? Give summary @ -No Was smoking cessation discussed for >3mins.? @ -No Was critical care preformed (if so, how long)? @ -No Were there social determinants of health that impacted care today? How? (Homelessness, low income, unemployed, alcoholism, drug addiction, transportation, low edu. Level, literacy, decrease access to med. care, [facility], rehab)? @ -No Was there de-escalation of care discussed even if they declined (Discuss DNR or withdrawal of care, Hospice)? DNR status @ -No What co-morbidities impacted this encounter? (DM, HTN, Smoking, COPD, CAD, Cancer, CVA, ARF, Chemo, Hep., AIDS, mental health diagnosis, sleep apnea, morbid obesity)? @ -None Was patient admitted / discharged? Hospital course, mention meds given and route, prescriptions, significant lab abnormalities, going to OR and other pertinent info. @ -49-year-old female presenting with chief complaint of foreign body sensation in her throat and episodes of dizziness for the last 4 to 5 months. History and physical examination are conducted. White count 18.2, patient reports that she is just recently getting over an illness. Troponin is negative. Urine shows no infectious process or bleeding. Urine toxicology screen is negative. No acute process seen on chest x-ray soft tissue neck x-ray. Patient reports improvement in her symptoms after meclizine and viscous lidocaine. She is educated on today's findings. I informed her that she needs to have her white blood cell count rechecked by her PCP to ensure that it is coming back down to normal. She will follow-up with her scheduled appointments with specialists including ophthalmology tomorrow and GI on the . Follow-up with PCP. Report back to ER with any new or worsening symptoms. Discussed return parameters and answered all questions. Patient conveyed verbal understanding and agreed to the plan. I discussed this case in detail with my attending Dr. Garcia Undiagnosed new problem with uncertain prognosis? @ -No Drug Therapy requiring intensive monitoring for toxicity (Heparin, Nitro, Insulin, Cardizem)? @ -No Were any procedures done? @ -No Diagnosis/symptom? @ -Globus sensation, lightheadedness Acute, or Chronic, or Acute on Chronic? @ -Acute Uncomplicated (without systemic symptoms) or Complicated (systemic symptoms)? @ -Uncomplicated Side effects of treatment? @ -No Exacerbation, Progression, or Severe Exacerbation? @ -No Poses a threat to life or bodily function? How? (Chest pain, [place], [place], pneumonia, PE, COPD, DKA, ARF, appy, cholecystitis, CVA, Diverticulitis, Homicidal, Suicidal, threat to staff... and all critical care pts) @ -Low likelihood - Lab Data Result diagrams: 11/03/24 18:19 11/03/24 18:19 Lab Results 11/03/24 11/03/24 11/03/24 Range/Units 17:56 18:19 18:19 WBC 18.2 H (3.8-10.6) k/uL RBC 5.23 (3.80-5.40) m/uL Hgb 14.3 (11.4-16.0) gm/dL Hct 45.3 (34.0-46.0) % MCV 86.6 (80.0-100.0) fL MCH 27.4 (25.0-35.0) pg MCHC 31.6 (31.0-37.0) g/dL RDW 14.6 (11.5-15.5) % Plt Count 489 H (150-450) k/uL MPV 6.4 Neutrophils % 67 % Lymphocytes % 26 % Monocytes % 4 % Eosinophils % 2 % Basophils % 1 % Neutrophils # 12.2 H (1.3-7.7) k/uL Lymphocytes # 4.6 (1.0-4.8) k/uL Monocytes # 0.6 (0-1.0) k/uL Eosinophils # 0.4 (0-0.7) k/uL Basophils # 0.1 (0-0.2) k/uL Sodium 139 (137-145) mmol/L Potassium 4.2 (3.5-5.1) mmol/L Chloride 100 (98-107) mmol/L Carbon Dioxide 26 (22-30) mmol/L Anion Gap 13 mmol/L BUN 20 H (7-17) mg/dL Creatinine 0.74 (0.52-1.04) mg/dL Est GFR (CKD-EPI)AfAm >90 (>60 ml/min/1.73 sqM) Est GFR (CKD-EPI)NonAf >90 (>60 ml/min/1.73 sqM) Glucose 118 H (74-99) mg/dL Plasma Lactic Acid David (0.7-2.0) mmol/L Calcium 10.0 (8.4-10.2) mg/dL Total Bilirubin 0.5 (0.2-1.3) mg/dL AST 49 H (14-36) U/L ALT 41 H (4-34) U/L Alkaline Phosphatase 106 (38-126) U/L Troponin I (0.000-0.034) ng/mL Total Protein 7.8 (6.3-8.2) g/dL Albumin 4.4 (3.5-5.0) g/dL Urine Color Colorless Urine Appearance Cloudy H (Clear) Urine pH 6.5 (5.0-8.0) Ur Specific Calvin 1.011 (1.001-1.035) Urine Protein Negative (Negative) Urine Glucose (UA) Negative (Negative) Urine Ketones Negative (Negative) Urine Blood Negative (Negative) Urine Nitrite Negative (Negative) Urine Bilirubin Negative (Negative) Urine Urobilinogen <2.0 (<2.0) mg/dL Ur Leukocyte Esterase Negative (Negative) Urine RBC 1 (0-5) /hpf Urine WBC 2 (0-5) /hpf Ur Squamous Epith Cells 4 (0-4) /hpf Urine Mucus Rare H (None) /hpf Urine Opiates Screen Not Detected (NotDetected) Ur Oxycodone Screen Not Detected (NotDetected) Urine Methadone Screen Not Detected (NotDetected) Ur Barbiturates Screen Not Detected (NotDetected) U Tricyclic Antidepress Not Detected (NotDetected) Ur Phencyclidine Scrn Not Detected (NotDetected) Ur Amphetamines Screen Not Detected (NotDetected) U Methamphetamines Scrn Not Detected (NotDetected) U Benzodiazepines Scrn Not Detected (NotDetected) Urine Cocaine Screen Not Detected (NotDetected) U Marijuana (THC) Screen Not Detected (NotDetected) 11/03/24 11/03/24 Range/Units 18:19 18:19 WBC (3.8-10.6) k/uL RBC (3.80-5.40) m/uL Hgb (11.4-16.0) gm/dL Hct (34.0-46.0) % MCV (80.0-100.0) fL MCH (25.0-35.0) pg MCHC (31.0-37.0) g/dL RDW (11.5-15.5) % Plt Count (150-450) k/uL MPV Neutrophils % % Lymphocytes % % Monocytes % % Eosinophils % % Basophils % % Neutrophils # (1.3-7.7) k/uL Lymphocytes # (1.0-4.8) k/uL Monocytes # (0-1.0) k/uL Eosinophils # (0-0.7) k/uL Basophils # (0-0.2) k/uL Sodium (137-145) mmol/L Potassium (3.5-5.1) mmol/L Chloride (98-107) mmol/L Carbon Dioxide (22-30) mmol/L Anion Gap mmol/L BUN (7-17) mg/dL Creatinine (0.52-1.04) mg/dL Est GFR (CKD-EPI)AfAm (>60 ml/min/1.73 sqM) Est GFR (CKD-EPI)NonAf (>60 ml/min/1.73 sqM) Glucose (74-99) mg/dL Plasma Lactic Acid David 1.5 (0.7-2.0) mmol/L Calcium (8.4-10.2) mg/dL Total Bilirubin (0.2-1.3) mg/dL AST (14-36) U/L ALT (4-34) U/L Alkaline Phosphatase (38-126) U/L Troponin I <0.012 (0.000-0.034) ng/mL Total Protein (6.3-8.2) g/dL Albumin (3.5-5.0) g/dL Urine Color Urine Appearance (Clear) Urine pH (5.0-8.0) Ur Specific Calvin (1.001-1.035) Urine Protein (Negative) Urine Glucose (UA) (Negative) Urine Ketones (Negative) Urine Blood (Negative) Urine Nitrite (Negative) Urine Bilirubin (Negative) Urine Urobilinogen (<2.0) mg/dL Ur Leukocyte Esterase (Negative) Urine RBC (0-5) /hpf Urine WBC (0-5) /hpf Ur Squamous Epith Cells (0-4) /hpf Urine Mucus (None) /hpf Urine Opiates Screen (NotDetected) Ur Oxycodone Screen (NotDetected) Urine Methadone Screen (NotDetected) Ur Barbiturates Screen (NotDetected) U Tricyclic Antidepress (NotDetected) Ur Phencyclidine Scrn (NotDetected) Ur Amphetamines Screen (NotDetected) U Methamphetamines Scrn (NotDetected) U Benzodiazepines Scrn (NotDetected) Urine Cocaine Screen (NotDetected) U Marijuana (THC) Screen (NotDetected) Disposition Clinical Impression: Globus sensation, Lightheadedness Disposition: HOME SELF-CARE Condition: Good Instructions (If sedation given, give patient instructions): Dizziness (ED) Additional Instructions: Follow-up with PCP, GI, ophthalmology, ENT, neurology. Report back to ER with any new or worsening symptoms. Is patient prescribed a controlled substance at d/c from ED?: No Referrals: Felipe Lindo MD [Primary Care Provider] - 1-2 days Time of Disposition: 19:46
[2024-11-03 19:25] LABS: ALT 41 U/L (4-34); AST 49 U/L (14-36); African American GFR (CKD) >90 (>60 ml/min/1.73 sqM); Albumin 4.4 g/dL (3.5-5.0); Alkaline Phosphatase 106 U/L (38-126); Anion Gap 13 mmol/L; Blood Urea Nitrogen 20 mg/dL (7-17); Carbon Dioxide 26 mmol/L (22-30); Chloride 100 mmol/L (98-107); Glucose 118 mg/dL (74-99); Non-African American GFR(CKD) >90 (>60 ml/min/1.73 sqM); Potassium 4.2 mmol/L (3.5-5.1); Sodium 139 mmol/L (137-145); Total Bilirubin 0.5 mg/dL (0.2-1.3); Total Protein 7.8 g/dL (6.3-8.2)
[2024-11-03 20:14] VITALS: BP 126/71; PULSE 80; TEMP 98.5
== END 2024-11-03 20:14 | disposition home or self-care (01) ==
LOC: EC 17:01
DX: R42 Dizziness and giddiness (principal); R09.A2 Foreign body sensation, throat; Z87.891 Personal history of nicotine dependence
CPT/HCPCS: 36415; 70360; 71046; 80053; 80306; 81001; 83605; 84484; 85025; 93005; 96360; 99285

== ENCOUNTER 2024-11-10 10:34 | Day surgery (SDC) | payer BC ==
[2024-11-08 15:27] VITALS: BMI 42.1
[~2024-11-10 10:34] MED LIST changes: -GABAPENTIN 300 MG CAP PO PRN; -HYDROmorphone 0.5 MG/0.5 ML SYRINGE IVP PRN; +LACTATED RINGERS 1,000 ML IV SCH; -LIDOCAINE 1% (10MG/ML) FOR IV START INTRADERMA PRN; -MIDAZOLAM 2 MG/2 ML VIAL IV PRN; -ONDANSETRON 4 MG/2 ML VIAL IVP PRN; -TRANEXAMIC 1,000 MG/100ML-NACL 1,000 MG in SALINE 1 100ML.BAG IVPB PRN
[2024-11-10 11:27] VITALS: TEMP 98.6
[2024-11-10] MEDS ORDERED: ROPIVACAINE 5MG/ML 20ML VIAL ONE (12:11)
[2024-11-10] MEDS ORDERED: methylPREDNISolone ACETATE 40 MG/ML 1 ML VIAL ONE (12:11)
--- NOTE | 2024-11-10 12:22 | P.PCN ---
Date of Procedure: 11/10/24 Procedure(s) Performed: Preoperative diagnoses= 1- Greater occipital neuralgia. 2-cervicogenic headache Postoperative diagnoses= 1-greater occipital neuralgia. 2-echogenic headache. Procedure= Bilateral Greater occipital nerve block Anesthesia= none . Estimated blood loss=minimal. Procedure indication= the patient had a history of severe chronic neck pain ,and headache, diagnosed with occipital neuralgia exam was positive for severe tenderness over the occipital nerve bilaterally, she will be a good candidate occipital nerve block, patient failed conservative management Procedure description= the patient was seen and identified in the preoperative holding area, risks and benefits and alternative of the procedure and possible complications discussed with the patient, and he agreed with the preceding, patient signed the consent, and vital signs were monitored and were stable throughout the procedure, patient was placed in the sitting position or table and the neck area was prepped and draped with a sterile fashion, vital signs were closely monitored during the procedure, 25-gauge needle advanced 1 inch lateral to the occipital protuberance on the right side, at the location of the right occipital nerve , then after negative aspiration for heme and CSF and there was no paresthesia during the injection, 6 ml of Robivacaine 0.5% and 40 mg of Depo-Medrol injected after negative aspiration, the needle removed, and the entire same procedure was repeated for the left Greater occipital nerve. Patient tolerated the procedure well without any complication, The patient returned to supine position after the back was cleaned and a Band- Aid applied, the patient transported to recovery room in stable condition and he was monitored for 30 minutes before he was discharged home and then patient was reexamined before going home and patient was discharged in stable condition and patient will follow up with the pain clinic in a few weeks. note= patient was scheduled to have the procedure done on the left side occipital nerve block, but in the preop holding area patient reported that over the last few weeks she is having severe headache on both side, for this reason we will be more beneficial to the patient to do the procedure on both side, I checked with the reinsurance claim analyst and it was okay to proceed with bilateral greater occipital nerve block, patient signed the consent.
[2024-11-10 12:44] VITALS: BP 119/77; PULSE 79; RESP 16
== END 2024-11-10 12:59 | disposition home or self-care (01) ==
LOC: ORPAIN 10:34
PROVIDERS: ATTEND Specialist
DX: M54.81 Occipital neuralgia (principal); G44.86 Cervicogenic headache
CPT/HCPCS: 81025; 64405; J2795; J1010

== ENCOUNTER → 2024-11-14 | Outpatient (CLI) | payer BC ==
--- NOTE | 2024-11-14 11:43 | US ---
EXAMINATION TYPE: US carotid duplex BILAT DATE OF EXAM: 11/14/2024 COMPARISON: NONE CLINICAL INDICATION: Female, 49 years old with history of R42 DIZZINESS AND GIDDINESS; Pt states dizz iness and lightheadedness Additional History: .... TECHNIQUE: Grayscale, color Doppler and spectral Doppler evaluation of the bilateral carotid systems and vertebral arteries. Indirect Doppler criteria was utilized. FINDINGS: EXAM MEASUREMENTS: RIGHT: Peak Systolic Velocity (PSV) cm/sec ----- Right CCA: 111.7 ----- Right ICA: 123.7 ----- Right ECA: 108.2 ICA/CCA ratio: 1.1 RIGHT: End Diastole cm/sec ----- Right CCA: 34.7 ----- Right ICA: 57.5 ----- Right ECA: 29.2 LEFT: Peak Systolic Velocity (PSV) cm/sec ----- Left CCA: 111.7 ----- Left ICA: 133.4 ----- Left ECA: 133.2 ICA/CCA ratio: 1.2 LEFT: End Diastole cm/sec ----- Left CCA: 24.8 ----- Left ICA: 49.4 ----- Left ECA: 15.0 VERTEBRALS (direction of flow): Right Vertebral: Antegrade Left Vertebral: Antegrade Rhythm: Appeared tachy CHART COMPUTER NOTES: No significant stenosis seen Color Doppler imaging shows patency with blood flow throughout the carotid artery. Spectral waveforms are within normal limits. IMPRESSION: No evidence for hemodynamic significant stenosis Criteria for Assigning % of Stenosis / Diameter reduction (Estimation based on the indirect measurements of the internal carotid artery velocities (ICA PSV). 1. Normal (no stenosis)=ICA PSV < 125 cm/s: ratio < 2.0: ICA EDV<40 cm/s. 2. Less than 50% stenosis=ICA PSV < 125 cm/s: ratio < 2.0: ICA EDV<40 cm/s. 3. 50 to 69% stenosis=ICA PSV of 125 to 230 cm/s: ration 2.0 ? 4.0: ICA EDV 40-100 cm/s. 4. Greater than 70% stenosis to near occlusion= ICA PSV > 230 cm/s: ratio > 4.0: ICA EDV > 100 cm/s. 5. Near occlusion= ICA PSV velocities may be low or undetectable: variable ratio and ICA EDV. 6. Total occlusion=unable to detect flow. [facility], , 11/14/2024 11:41 AM
== END | disposition home or self-care (01) ==
LOC: RADUSWWP 10:59
PROVIDERS: ATTEND Family Medicine
DX: R42 Dizziness and giddiness (principal)
CPT/HCPCS: 93880

== ENCOUNTER → 2024-11-15 | Outpatient (CLI) | payer BC ==
--- NOTE | 2024-11-15 12:21 | CT ---
EXAMINATION TYPE: CT orbits wo/w con DATE OF EXAM: 11/15/2024 COMPARISON: None HISTORY: pressure around and behind eyes CT DLP: 730.3 mGycm Automated exposure control for dose reduction was used. CONTRAST: Performed without and with IV Contrast, patient injected with 100 mL of Isovue 300. FINDINGS: The orbits are symmetric. There is no evidence for exophthalmus. No intra or extraconal masses seen. Optic nerves are symmetric without pathologic enhancement or enhancing mass. Extraocular musculature appears symmetric without abnormal thickening. No bony destructive process seen. Moderate mucosal thickening right maxillary sinus with obstruction of the right ostiomeatal unit. Remaining paranasal sinuses are well-aerated. IMPRESSION: NO DISTINCT ABNORMALITY OF THE ORBITS. CHRONIC SINUSITIS. [facility], , 11/15/2024 12:19 PM
== END | disposition home or self-care (01) ==
LOC: RADCTMAIN 11:13
PROVIDERS: ATTEND Ophthalmology
DX: G43.109 Migraine with aura, not intractable, without status migrainosus (principal); J32.9 Chronic sinusitis, unspecified
CPT/HCPCS: 70482; Q9967

== ENCOUNTER 2024-11-16 10:53 | Day surgery (SDC) | payer BC ==
[2024-11-14 16:10] VITALS: BMI 42.5
[2024-11-16] MEDS: IV FLUID CONTINUATION 1,000 ML IV ONE (11:50)
[2024-11-16 12:16] VITALS: RESP 16; TEMP 97.4
[2024-11-16] MEDS ORDERED: PROPOFOL 10 MG/ML 20 ML VIAL IV ONE (12:41)
[2024-11-16] MEDS ORDERED: LIDOCAINE 1% INJ 10MG/ML (20 ML MDV) ONE (12:41)
--- NOTE | 2024-11-16 12:56 | P.PCN ---
Date of Procedure: 11/16/24 Procedure(s) Performed: BRIEF HISTORY: Patient is a 49-year-old, pleasant, white female scheduled for an upper endoscopy as a part evaluation of throat irritation and chronic cough for the last 6 months duration.. She denies any heartburn. No dysphagia or odynophagia. PROCEDURE PERFORMED: Esophagogastroduodenoscopy biopsy. PREOPERATIVE DIAGNOSIS: Chronic cough and throat irritation. IV sedation per anesthesia. PROCEDURE: After informed consent was obtained, the patient was brought into the endoscopy unit. IV sedation was administered by Anesthesia under continuous monitoring. Initially the Olympus GIF-140 video endoscope was inserted into the mouth. Esophagus intubated without any difficulty. It was gradually advanced into the stomach and duodenum and carefully examined. The bulb and the second part of the duodenum appeared normal. The scope at this time was withdrawn to the stomach, adequately insufflated with air, and upon careful examination, mucosa of the antrum, body, cardia and the fundus appeared normal. The scope was then withdrawn into the esophagus. The GE junction was located at 39 cm from the incisors. The esophagus appeared normal. There were 2 superficial erosions in the distal esophagus consistent with LA grade B reflux esophagitis. Biopsies were done from the distal esophagus and the patient tolerated the procedure well. IMPRESSION: 1. Mild gastritis. 2. 2 superficial erosions in the distal esophagus consistent with LA grade B reflux esophagitis. RECOMMENDATIONS: The findings of this examination were discussed with the patient as well as her family. She was advised to follow-up with the biopsy results. In the meantime she will be started on omeprazole 40 mg daily to be taken half hour before dinnertime and follow antireflux measures. Follow-up in the office in 6 weeks..
[2024-11-16 13:21] VITALS: BP 108/63; PULSE 74
== END 2024-11-16 13:42 | disposition home or self-care (01) ==
LOC: ORWHC2ENDO 10:53
PROVIDERS: ATTEND Internal Medicine Gastroenterology
DX: K22.10 Ulcer of esophagus without bleeding (principal); K29.30 Chronic superficial gastritis without bleeding; K21.00 Gastro-esophageal reflux disease with esophagitis, without bleeding; I10 Essential (primary) hypertension; E07.9 Disorder of thyroid, unspecified; M19.90 Unspecified osteoarthritis, unspecified site; R51.9 Headache, unspecified; F32.A Depression, unspecified; Z79.890 Hormone replacement therapy; Z79.899 Other long term (current) drug therapy; Z87.891 Personal history of nicotine dependence
CPT/HCPCS: 43239; 81025; 88305; J2003; J2704

== ENCOUNTER 2024-12-05 01:18 | Emergency (ER) | payer BC ==
[2024-12-05 01:27] VITALS: TEMP 98.3
--- NOTE | 2024-12-05 02:32 | ED ---
General Adult HPI - General Chief complaint: ENT Stated complaint: Gagging, heart racing, ACACIA Time Seen by Provider: 12/05/24 01:51 Source: patient Mode of arrival: ambulatory Limitations: no limitations - History of Present Illness Initial comments: Patient is a 49-year-old female presenting today for throat discomfort that started about 6-8 months ago. Feels like something is stuck in her throat. She has been seen by ENT and has a CT scheduled outpatient at the end of November. This evening as patient was going to bed, she laid down on her stomach and the sensation worsened, making her feel like she couldn't breathe. Patient is concerned for what could be going on so came to the hospital. States she has had a persistent cough over this time as well that is nonproductive of sputum or hemoptysis. States that chest hurts with coughing otherwise denies chest pain or ACACIA. No lower extremity swelling. Patient denies fevers, sensation of a sor e throat, chills, rapid weight loss, abdominal pain, nausea, vomiting, diarrhea, black or bloody stools. No history ACS. Had recent endocsopy with GI and was told she may have some signs of inflammation. She denies swallowing any sharp objects. - Related Data Home Medications Medication Instructions Recorded Confirmed Biotin(Unknown Dose) 1 dose PO QAM 01/08/24 11/16/24 Levothyroxine Sodium [Synthroid] 25 mcg PO DAILY 01/08/24 11/16/24 atenoloL 25 mg PO QAM 01/08/24 11/16/24 buPROPion HCL [buPROPion HCL XL] 150 mg PO DAILY 09/16/24 11/16/24 Multivitamins, Thera [Multivitamin 1 tab PO DAILY 11/08/24 11/16/24 (formulary)] Zolpidem Tartrate [Zolpidem 12.5 mg PO HS 11/08/24 11/16/24 Tartrate ER] rOPINIRole HCL [Requip] 3 mg PO TID 11/08/24 11/16/24 Meclizine [Antivert] 25 mg PO DAILY 11/14/24 11/16/24 Allergies Allergy/AdvReac Type Severity Reaction Status Date / Time No Known Allergies Allergy Verified 12/05/24 01:23 Review of Systems ROS Statement: Those systems with pertinent positive or pertinent negative responses have been documented in the HPI. ROS Other: All systems not noted in ROS Statement are negative. Past Medical History Past Medical History: GERD/Reflux, Hypertension, Osteoarthritis (OA), Thyroid Disorder Additional Past Medical History / Comment(s): Daily headaches, dizziness, back pain, degenrative disc, disease, hypoactive thyroid. History of Any Multi-Drug Resistant Organisms: None Reported Past Surgical History: Back Surgery, Joint Replacement, Orthopedic Surgery Additional Past Surgical History / Comment(s): Total right hip replacement, then right hip reconstruction. Past Anesthesia/Blood Transfusion Reactions: No Reported Reaction Additional Past Anesthesia/Blood Transfusion Reaction / Comment(s): No hx blood transfusion. Past Psychological History: Depression Smoking Status: Former smoker Past Alcohol Use History: None Reported Past Drug Use History: None Reported - Past Family History Mother Family Medical History: No Reported History General Exam - General Exam Comments Initial Comments: PE: CONSTITUTIONAL: No apparent distress, well appearing SKIN: Warm, dry, no jaundice, hives or petechiae EYES: Pupils are equally round, extraocular movements intact without nystagmus, clear conjunctiva, non-icteric sclera HENT: Normocephalic, atraumatic, moist mucus membranes, oropharynx clear without exudates, no oropharyngeal erythema, tonsillar swelling or tonsillar exudates NECK: , Full range of motion, normal appearance, no cervical adenopathy, no palpable masses PULMONARY: Clear to auscultation without wheezes, rhonchi, or rales, normal excursion, no accessory muscle use and no stridor CARDIOVASCULAR: Regular rate, rhythm, normal S1 and S2. No appreciated murmurs, rubs or gallops. Strong radial pulses with intact distal perfusion. No lower extremity edema GASTROINTESTINAL: Soft, active bowel sounds throughout, non-tender, non- distended, no palpable masses, no rebound or guarding. No hepatosplenomegaly GENITOURINARY: MUSCULOSKELETAL: Extremities have no gross deformity NEUROLOGIC:_a/o x 3, GCS 15, normal mentation and speech. Moves all extremities x 4 without motor or sensory deficit PSYCHIATRIC:_normal mood and affect, thought process is clear and linear Limitations: no limitations Course Vital Signs 12/05/24 12/05/24 12/05/24 01:23 03:26 05:28 Temperature 98.3 F Pulse Rate 114 H 105 H 96 Respiratory 17 18 16 Rate Blood Pressure 131/82 128/83 123/82 O2 Sat by Pulse 97 95 95 Oximetry EKG Findings - EKG Comments: EKG Findings:: Sinus tachycardia, rate 108 bpm NV interval 124 ms QT/QTc 307/370 ms, normal axis, no ST elevations or depressions, no arrhythmia Medical Decision Making - Medical Decision Making Was pt. sent in by a medical professional or institution (, PA, [facility], urgent care, hospital, or shelter...) When possible be specific @ -No Did you speak to anyone other than the patient for history (EMS, parent, family, police, friend...)? What history was obtained from this source @ -No Did you review nursing and triage notes (agree or disagree)? Why? @ -I reviewed and agree with nursing and triage notes Were old charts reviewed (outside hosp., previous admission, EMS record, old EKG, old radiological studies, urgent care reports/EKG's, shelter records)? Report findings @ -Medical records reviewed-reviewed ED visit from October 2024 when patient presented for similar complaint, soft tissue x-ray neck at that time was unremarkable; Reviewed upper endoscopy report from 11/16/2024 which showed mild gastritis and superficial erosions of the distal esophagus consistent with grade B reflux esophagitis Differential Diagnosis (chest pain, altered mental status, abdominal pain women, abdominal pain men, vaginal bleeding, weakness, fever, dyspnea, syncope, headache, dizziness, GI bleed, back pain, seizure, CVA, palpatations, mental health, musculoskeletal)? @ -Differential diagnosis remains broad over top considerations include gastritis, esophagitis, peptic ulcer disease, streptococcal pharyngitis, tonsillitis, aspirated foreign body, malignancy, obesity hypoventilation syndrome, sleep apnea, but is not all-inclusive list EKG interpreted by me (3pts min.). @ -As above X-rays interpreted by me (1pt min.). Similar reviewed chest x-ray I see no evidence of pneumothorax, cardiomegaly or other acute process I agree with radiologist interpretation CT interpreted by me (1pt min.). @ -I personally reviewed CT scan, I see no evidence of masses or foreign body I agree with radiologist interpretation U/S interpreted by me (1pt. min.). @ -None done What testing was considered but not performed or refused? (CT, X-rays, U/S, labs)? Why? @ -None What meds were considered but not given or refused? Why? @ -None Did you discuss the management of the patient with other professionals (professionals i.e. , PA, [facility], lab, RT, psych nurse, social contact worker, computer installation engineer, teacher, chief merchandising officer, catalytic case operator)? Give summary @ -No Was smoking cessation discussed for >3mins.? @ -No Was critical care preformed (if so, how long)? @ -No Were there social determinants of health that impacted care today? How? (Homelessness, low income, unemployed, alcoholism, drug addiction, transportation, low edu. Level, literacy, decrease access to med. care, residential, rehab)? @ -No Was there de-escalation of care discussed even if they declined (Discuss DNR or withdrawal of care, Hospice)? @ -No What co-morbidities impacted this encounter? (DM, HTN, Smoking, COPD, CAD, Cancer, CVA, ARF, Chemo, Hep., AIDS, mental health diagnosis, sleep apnea, morbid obesity)? obesity Was patient admitted / discharged? Hospital course, mention meds given and route, prescriptions, significant lab abnormalities, going to OR and other pertinent info. @Discharged -this is a 49-year-old female presenting today for sensation of some thing stuck in the base of her throat without recent injury ongoing for 6 to 8 months. Tachycardic otherwise vital signs within acceptable limits. No palpable masses or cervical adenopathy, no stridor, oropharyngeal exam is benign. Due to patient need for outpatient CT of the soft tissue neck and her persistent concern, will obtain CT soft tissue neck here, in addition to a chest x-ray, basic labs, EKG. patient be given a GI cocktail. Patient agreeable w/ plan . Labs and imaging reviewed. Grossly within normal limits. Abnormal values not concerning for acute pathology related to presenting complaint. On reassessment patient endorsed resolution of symptoms after viscous lidocaine and Pepcid. I did discuss with her concern for gastritis, especially given endoscopy findings. I discussed with patient the importance of taking omeprazole nightly, lifestyle and dietary adjustments to decrease symptoms of esophagitis/gastritis and the importance of close follow-up. Patient was understanding and agreeable plan of care. In my medical judgment there is currently no evidence of an immediate life- threatening or surgical condition. Discharge is therefore indicated at this time. Discharge treatment instructions, follow up instructions, and appropriate emergency department return precautions were discussed with the patient and/or medical decision maker. Patient and/or medical decision maker expressed understanding of and agreed with the treatment plan, follow up instructions, and emergency department return precaution. All patient's and/or medical decision maker's questions were answered. Undiagnosed new problem with uncertain prognosis? @ -No Drug Therapy requiring intensive monitoring for toxicity (Heparin, Nitro, Insulin, Cardizem)? @ -No Were any procedures done? @ -No Diagnosis/symptom? @Throat discomfort, esophagitis Acute, or Chronic, or Acute on Chronic? @Acute Uncomplicated (without systemic symptoms) or Complicated (systemic symptoms)? @Uncomplicated Side effects of treatment? @ -No Exacerbation, Progression, or Severe Exacerbation? @ -No Poses a threat to life or bodily function? How? (Chest pain, USA, PA, pneumonia, PE, COPD, DKA, ARF, appy, cholecystitis, CVA, Diverticulitis, Homicidal, Suicidal, threat to staff... and all critical care pts) @ -No - Lab Data Result diagrams: 12/05/24 02:45 12/05/24 02:45 Lab Results 12/05/24 12/05/24 12/05/24 Range/Units 02:45 02:45 02:45 WBC 11.2 H (3.8-10.6) k/uL RBC 4.60 (3.80-5.40) m/uL Hgb 12.7 (11.4-16.0) gm/dL Hct 39.3 (34.0-46.0) % MCV 85.5 (80.0-100.0) fL MCH 27.6 (25.0-35.0) pg MCHC 32.3 (31.0-37.0) g/dL RDW 14.6 (11.5-15.5) % Plt Count 434 (150-450) k/uL MPV 7.0 Neutrophils % 66 % Lymphocytes % 23 % Monocytes % 4 % Eosinophils % 5 % Basophils % 1 % Neutrophils # 7.3 (1.3-7.7) k/uL Lymphocytes # 2.6 (1.0-4.8) k/uL Monocytes # 0.5 (0-1.0) k/uL Eosinophils # 0.5 (0-0.7) k/uL Basophils # 0.1 (0-0.2) k/uL PT 9.9 L (10.0-12.5) sec INR 0.9 (<1.2) APTT 25.7 (22.0-30.0) sec Sodium 138 (137-145) mmol/L Potassium 4.2 (3.5-5.1) mmol/L Chloride 103 (98-107) mmol/L Carbon Dioxide 27 (22-30) mmol/L Anion Gap 8 mmol/L BUN 14 (7-17) mg/dL Creatinine 0.74 (0.52-1.04) mg/dL Est GFR (CKD-EPI)AfAm >90 (>60 ml/min/1.73 sqM) Est GFR (CKD-EPI)NonAf >90 (>60 ml/min/1.73 sqM) Glucose 191 H (74-99) mg/dL Calcium 9.4 (8.4-10.2) mg/dL Total Bilirubin 0.3 (0.2-1.3) mg/dL AST 29 (14-36) U/L ALT 28 (4-34) U/L Alkaline Phosphatase 108 (38-126) U/L Troponin I (0.000-0.034) ng/mL NT-Pro-B Natriuret Pep <20 pg/mL Total Protein 7.0 (6.3-8.2) g/dL Albumin 4.0 (3.5-5.0) g/dL Group A Strep (PCR) (Not Detectd) 12/05/24 12/05/24 Range/Units 02:45 02:53 WBC (3.8-10.6) k/uL RBC (3.80-5.40) m/uL Hgb (11.4-16.0) gm/dL Hct (34.0-46.0) % MCV (80.0-100.0) fL MCH (25.0-35.0) pg MCHC (31.0-37.0) g/dL RDW (11.5-15.5) % Plt Count (150-450) k/uL MPV Neutrophils % % Lymphocytes % % Monocytes % % Eosinophils % % Basophils % % Neutrophils # (1.3-7.7) k/uL Lymphocytes # (1.0-4.8) k/uL Monocytes # (0-1.0) k/uL Eosinophils # (0-0.7) k/uL Basophils # (0-0.2) k/uL PT (10.0-12.5) sec INR (<1.2) APTT (22.0-30.0) sec Sodium (137-145) mmol/L Potassium (3.5-5.1) mmol/L Chloride (98-107) mmol/L Carbon Dioxide (22-30) mmol/L Anion Gap mmol/L BUN (7-17) mg/dL Creatinine (0.52-1.04) mg/dL Est GFR (CKD-EPI)AfAm (>60 ml/min/1.73 sqM) Est GFR (CKD-EPI)NonAf (>60 ml/min/1.73 sqM) Glucose (74-99) mg/dL Calcium (8.4-10.2) mg/dL Total Bilirubin (0.2-1.3) mg/dL AST (14-36) U/L ALT (4-34) U/L Alkaline Phosphatase (38-126) U/L Troponin I <0.012 (0.000-0.034) ng/mL NT-Pro-B Natriuret Pep pg/mL Total Protein (6.3-8.2) g/dL Albumin (3.5-5.0) g/dL Group A Strep (PCR) NOT DETECTED (Not Detectd) Disposition Clinical Impression: Throat discomfort Disposition: HOME SELF-CARE Condition: Good Instructions (If sedation given, give patient instructions): Strep Throat (ED) Additional Instructions: Every disease is a spectrum and a small chance still exists that a serious condition could develop, for this reason, please monitor yourself closely for n ew, changing or worsening symptoms, difficulty in breathing, coughing up thick sputum or blood, chest pain, fever, inability to tolerate/keep down fluids or your medications, inability to follow up with outpatient providers as instructed and should you experience these symptoms or should you have any further concerns for your wellbeing please return to the ED or call 911 immediately. PLEASE call your primary care physician as soon as possible to arrange / discuss plan for followup appointment. Appointment in the next 1-3 days is strongly encouraged if possible. PLEASE let us know here before you leave if there is anything further we can do to be of any assistance. Take care and feel Better! Is patient prescribed a controlled substance at d/c from ED?: No Referrals: Felipe Lindo MD [Primary Care Provider] - 1-2 days
[2024-12-05] MEDS: LIDOCAINE VISCOUS 2% 15 ML CUP PO ONE (02:35)
[2024-12-05] MEDS: MAG HYDROX/AL HYDROX/SIMETH 30 ML CUP PO STA (02:35)
[2024-12-05] MEDS: SODIUM CHLORIDE 0.9% 500 ML 500 ML IV ONE (02:43)
[2024-12-05] MEDS: FAMOTIDINE 20 MG/2 ML VIAL IV STA (02:44)
[2024-12-05 02:59] LABS: Basophils # (A) 0.1 k/uL (0-0.2); Basophils % (A) 1 %; Eosinophils # (A) 0.5 k/uL (0-0.7); Eosinophils % (A) 5 %; HCT 39.3 % (34.0-46.0); HGB 12.7 gm/dL (11.4-16.0); Lymphocytes # (A) 2.6 k/uL (1.0-4.8); Lymphocytes % (A) 23 %; MCH 27.6 pg (25.0-35.0); MCHC 32.3 g/dL (31.0-37.0); MCV 85.5 fL (80.0-100.0); Monocytes # (A) 0.5 k/uL (0-1.0); Monocytes % (A) 4 %; Neutrophils # (A) 7.3 k/uL (1.3-7.7); Neutrophils % (A) 66 %; Platelet Count 434 k/uL (150-450); RDW 14.6 % (11.5-15.5); WBC 11.2 k/uL (3.8-10.6)
[2024-12-05 03:10] LABS: ALT 28 U/L (4-34); AST 29 U/L (14-36); African American GFR (CKD) >90 (>60 ml/min/1.73 sqM); Alkaline Phosphatase 108 U/L (38-126); Anion Gap 8 mmol/L; Blood Urea Nitrogen 14 mg/dL (7-17); Calcium 9.4 mg/dL (8.4-10.2); Carbon Dioxide 27 mmol/L (22-30); Chloride 103 mmol/L (98-107); Glucose 191 mg/dL (74-99); INR 0.9 (<1.2); Non-African American GFR(CKD) >90 (>60 ml/min/1.73 sqM); Partial Thromboplastin Time 25.7 sec (22.0-30.0); Potassium 4.2 mmol/L (3.5-5.1); Prothrombin Time 9.9 sec (10.0-12.5); Sodium 138 mmol/L (137-145); Total Bilirubin 0.3 mg/dL (0.2-1.3)
[2024-12-05 03:18] LABS: NT-Pro-B-Type Natriuretic Pept <20 pg/mL
--- NOTE | 2024-12-05 03:26 | XR ---
EXAM: XR Chest, 2 Views CLINICAL HISTORY: ITS.REASON XR Reason: Cough TECHNIQUE: Frontal and lateral views of the chest. COMPARISON: No relevant prior studies available. FINDINGS: Lungs: No consolidation or mass. Pleural space: No effusion. Heart: Cardiomegaly. Bones/joints: No acute findings. IMPRESSION: No acute cardiopulmonary process.
[2024-12-05] MEDS: ACETAMINOPHEN TAB 500 MG TAB PO STA (03:30)
--- NOTE | 2024-12-05 05:05 | CT ---
CT Neck Without Intravenous Contrast CLINICAL HISTORY: ITS.REASON CT Reason: "globus sens." anterior throat, just above sternum TECHNIQUE: Axial computed tomography images of the neck without intravenous contrast. CTDI is 16.7 mGy and DLP is 537.7 mGy-cm. This CT exam was performed using one or more of the following dose reduction techniques: automated exposure control, adjustment of the mA and/or kV according to patient size, and/or use of iterative reconstruction technique. COMPARISON: No relevant prior studies available. FINDINGS: Tonsils: No tonsillar enlargement. Larynx: Epiglottis is unremarkable. Airway: Aerodigestive tract is patent. Bones: No acute fracture. Upper lungs: Clear. IMPRESSION: No acute findings. No significant finding above the sternum.
[2024-12-05 05:29] VITALS: BP 123/82; PULSE 96; RESP 16
== END 2024-12-05 05:29 | disposition home or self-care (01) ==
LOC: EC 01:18
DX: R09.89 Other specified symptoms and signs involving the circulatory and respiratory systems (principal); K20.90 Esophagitis, unspecified without bleeding; R00.0 Tachycardia, unspecified; Z87.891 Personal history of nicotine dependence
CPT/HCPCS: 36415; 93005; 87651; 83880; 80053; 84484; 85025; 85610; 85730; 71046; 70490; 99285; 96374; J3490